=== PATIENT | male | born 1965 | race Caucasian/White ===

== ENCOUNTER 2021-10-10 19:51 | Observation (INO) ==
[2021-10-10 21:21] LABS: Basophils % 0.1 %; Eosinophils # 0.2 K/mcL (0.0-0.6); Hematocrit 44.7 % (37.5-50.1); Hemoglobin 14.6 g/dL (12.9-16.9); Immature Granulocytes % 0.4 % (0-4); Lymphocytes # 0.4 K/mcL (0.6-4.6); Mean Corpuscular HGB Conc 32.7 g/dL (31.6-35.5); Mean Corpuscular Volume 85.6 fL (83.0-100.0); Mean Platelet Volume 9.7 fL (9.4-12.4); Monocytes # 0.6 K/mcL (0.0-1.3); Monocytes % 4.1 %; Neutrophils # 13.2 K/mcL (1.6-8.9); Platelet Count 215 K/mcL (140-400); Red Blood Count 5.22 M/mcL (4.19-5.50); Segmented Neutrophils % 91.4 %; White Blood Count 14.4 K/mcL (4.3-11.1)
[2021-10-10 21:35] LABS: BUN/Creatinine Ratio 31 (6-26); Blood Urea Nitrogen 28 mg/dL (6-20); Calcium 9.6 mg/dL (8.6-10.3); Carbon Dioxide 23 mEq/L (23-29); Chloride 103 mEq/L (98-107); Glucose 109 mg/dL (70-105); Osmolality,Calculated 290 (280-300); Potassium 4.2 mEq/L (3.5-5.1); Sodium 137 mEq/L (136-145); eGFR For African Americans > 60 (> 60); eGFR For Non-African Americans > 60 (> 60)
[2021-10-10 21:47] LABS: Troponin I 0.04 ng/mL (< 0.04)
[2021-10-10] MEDS ORDERED: Ondansetron 4 MG/2 ML VIAL IVP ONE (21:55)
[2021-10-10] MEDS ORDERED: Aspirin 325 MG TABLET PO ONE (21:56)
[2021-10-10] MEDS ORDERED: Nitroglycerin 0.4 MG TAB.SUBL SL PRN (22:29)
[2021-10-10] MEDS ORDERED: Acetaminophen 325 MG TABLET PO PRN (22:51)
[2021-10-10] MEDS ORDERED: MOM Conc 10 ML UD.LIQ PO PRN (22:51)
[2021-10-10] MEDS ORDERED: Naloxone 0.4 MG/ML INJ IVP PRN (22:51)
[2021-10-10] MEDS ORDERED: Ondansetron ODT 4 MG TAB.RAPDIS SL PRN (22:51)
[2021-10-10] MEDS ORDERED: Melatonin 3 MG TABLET PO PRN (22:51)
[2021-10-10 23:28] LABS: Influenza A PCR Negative (Negative); Influenza B PCR Negative (Negative); Resp. Syncytial Virus PCR Negative (Negative)
[2021-10-10 23:31] LABS: SARS-CoV-2 by PCR (In House) Negative (Negative)
[2021-10-10] MEDS ORDERED: Perflutren Lipid Microsphere 1.3 ML in 0.9 % Sodium Chloride 8.7 ML IVP PRN (23:53)
[2021-10-11] MEDS ORDERED: GI Cocktail 40 ML EACH PO ONE (00:23)
[2021-10-11 05:37] LABS: Basophils % 0.2 %; Eosinophils # 0.2 K/mcL (0.0-0.6); Eosinophils % 1.7 %; Hematocrit 39.2 % (37.5-50.1); Immature Granulocytes % 0.3 % (0-4); Lymphocytes # 0.9 K/mcL (0.6-4.6); Lymphocytes % 9.3 %; Mean Corpuscular HGB Conc 33.2 g/dL (31.6-35.5); Mean Corpuscular Hemoglobin 28.7 pg (28.0-33.3); Mean Corpuscular Volume 86.5 fL (83.0-100.0); Mean Platelet Volume 9.9 fL (9.4-12.4); Monocytes # 0.6 K/mcL (0.0-1.3); Monocytes % 6.9 %; Neutrophils # 7.6 K/mcL (1.6-8.9); Platelet Count 181 K/mcL (140-400); Red Blood Count 4.53 M/mcL (4.19-5.50); Segmented Neutrophils % 81.6 %; White Blood Count 9.3 K/mcL (4.3-11.1)
[2021-10-11 05:54] LABS: BUN/Creatinine Ratio 35 (6-26); Blood Urea Nitrogen 34 mg/dL (6-20); Calcium 8.9 mg/dL (8.6-10.3); Carbon Dioxide 23 mEq/L (23-29); Chloride 102 mEq/L (98-107); Chol/HDL Ratio 3.3 (0-4.9); Cholesterol 105 mg/dL (< 200); Glucose 101 mg/dL (70-105); HDL Cholesterol 32 mg/dL (40-59); LDL Cholesterol,Calculated 60 mg/dL (< 100); Magnesium 2.1 mg/dL (1.6-2.6); Osmolality,Calculated 288 (280-300); Phosphorous 4.5 mg/dL (2.7-4.5); Potassium 3.8 mEq/L (3.5-5.1); Sodium 135 mEq/L (136-145); Triglycerides 66 mg/dL (< 150); eGFR For African Americans > 60 (> 60); eGFR For Non-African Americans > 60 (> 60)
[2021-10-11] MEDS ORDERED: *HR* Heparin 5,000 UNIT/ML VIAL SQ SCH (06:00)
[2021-10-11] MEDS ORDERED: Regadenoson 0.4 MG/5 ML SYRINGE IVP ONE (07:58)
[2021-10-11] MEDS: Aspirin 81 MG TAB.CHEW PO SCH (08:23)
[2021-10-11] MEDS ORDERED: Metoprolol XL (24 HR) Succ 25 MG TAB.ER.24H PO SCH (09:00)
[2021-10-11] MEDS: *HR* Heparin 5,000 UNIT/ML VIAL SQ SCH ×2 (13:46→20:13)
[2021-10-11] MEDS ORDERED: Metoprolol XL (24 HR) Succ 25 MG TAB.ER.24H PO ONE (14:05)
[2021-10-11] MEDS: predniSONE 20 MG TABLET PO SCH (16:45)
[2021-10-11] MEDS: Metoprolol XL (24 HR) Succ 25 MG TAB.ER.24H PO SCH (20:13)
[2021-10-12 01:11] LABS: Basophils % 0.4 %; Eosinophils # 0.2 K/mcL (0.0-0.6); Eosinophils % 4.5 %; Hematocrit 39.9 % (37.5-50.1); Hemoglobin 12.9 g/dL (12.9-16.9); Immature Granulocytes % 0.4 % (0-4); Lymphocytes # 0.8 K/mcL (0.6-4.6); Lymphocytes % 16.5 %; Mean Corpuscular HGB Conc 32.3 g/dL (31.6-35.5); Mean Corpuscular Hemoglobin 28.6 pg (28.0-33.3); Mean Corpuscular Volume 88.5 fL (83.0-100.0); Monocytes # 0.7 K/mcL (0.0-1.3); Monocytes % 13.6 %; Neutrophils # 3.3 K/mcL (1.6-8.9); Platelet Count 168 K/mcL (140-400); Red Blood Count 4.51 M/mcL (4.19-5.50); Segmented Neutrophils % 64.6 %; White Blood Count 5.1 K/mcL (4.3-11.1)
[2021-10-12 01:32] LABS: BUN/Creatinine Ratio 25 (6-26); Blood Urea Nitrogen 22 mg/dL (6-20); Calcium 8.9 mg/dL (8.6-10.3); Carbon Dioxide 27 mEq/L (23-29); Chloride 103 mEq/L (98-107); Glucose 110 mg/dL (70-105); Magnesium 2.2 mg/dL (1.6-2.6); Osmolality,Calculated 288 (280-300); Phosphorous 3.3 mg/dL (2.7-4.5); Potassium 4.2 mEq/L (3.5-5.1); Sodium 137 mEq/L (136-145); eGFR For African Americans > 60 (> 60); eGFR For Non-African Americans > 60 (> 60)
[2021-10-12] MEDS: *HR* Heparin 5,000 UNIT/ML VIAL SQ SCH ×3 (05:52→20:21)
[2021-10-12] MEDS: Metoprolol XL (24 HR) Succ 25 MG TAB.ER.24H PO SCH ×2 (07:58→20:20)
[2021-10-12] MEDS: Aspirin 81 MG TAB.CHEW PO SCH (07:58)
[2021-10-12] MEDS: predniSONE 20 MG TABLET PO SCH ×2 (07:58→17:59)
[2021-10-12] MEDS ORDERED: Regadenoson 0.4 MG/5 ML SYRINGE IVP ONE (11:03)
[2021-10-13 00:54] LABS: Basophils % 0.1 %; Eosinophils # 0.2 K/mcL (0.0-0.6); Eosinophils % 2.7 %; Hematocrit 38.5 % (37.5-50.1); Hemoglobin 12.4 g/dL (12.9-16.9); Immature Granulocytes % 0.5 % (0-4); Lymphocytes # 0.9 K/mcL (0.6-4.6); Lymphocytes % 10.4 %; Mean Corpuscular HGB Conc 32.2 g/dL (31.6-35.5); Mean Corpuscular Hemoglobin 27.7 pg (28.0-33.3); Mean Corpuscular Volume 85.9 fL (83.0-100.0); Mean Platelet Volume 9.7 fL (9.4-12.4); Monocytes # 0.7 K/mcL (0.0-1.3); Monocytes % 8.6 %; Neutrophils # 6.7 K/mcL (1.6-8.9); Platelet Count 184 K/mcL (140-400); Red Blood Count 4.48 M/mcL (4.19-5.50); Red Cell Distribution Width 15.6 % (11.5-14.5); Segmented Neutrophils % 77.7 %
[2021-10-13 00:59] LABS: White Blood Count 8.6 K/mcL (4.3-11.1)
[2021-10-13 01:15] LABS: BUN/Creatinine Ratio 29 (6-26); Blood Urea Nitrogen 22 mg/dL (6-20); Calcium 8.7 mg/dL (8.6-10.3); Carbon Dioxide 21 mEq/L (23-29); Chloride 105 mEq/L (98-107); Glucose 135 mg/dL (70-105); Magnesium 2.1 mg/dL (1.6-2.6); Osmolality,Calculated 285 (280-300); Phosphorous 3.6 mg/dL (2.7-4.5); Sodium 135 mEq/L (136-145); eGFR For African Americans > 60 (> 60); eGFR For Non-African Americans > 60 (> 60)
[2021-10-13] MEDS: *HR* Heparin 5,000 UNIT/ML VIAL SQ SCH ×2 (05:54→13:51)
[2021-10-13] MEDS: Metoprolol XL (24 HR) Succ 25 MG TAB.ER.24H PO SCH (08:23)
[2021-10-13] MEDS: predniSONE 20 MG TABLET PO SCH (08:23)
[2021-10-13] MEDS: Aspirin 81 MG TAB.CHEW PO SCH (08:23)
[2021-10-13 13:28] VITALS: BP 117/84; PULSE 69; TEMP 98.4; O2SAT 100
== END 2021-10-13 14:26 | disposition home or self-care (01) ==
LOC: 2ANU 19:51 → EMEROOARM 19:51 → SUATTDRO 22:46 → 2ANU 23:08
PROVIDERS: ADMIT Internal Medicine; ATTEND Internal Medicine

== ENCOUNTER 2022-03-09 06:03 | Inpatient (IN) ==
[2022-03-09] MEDS ORDERED: DOBUTamine 1,000 MG/250 ML BAG ONE (06:13)
[2022-03-09] MEDS ORDERED: NiCARdipine 2.5 MG/10 ML Syringe IVPB ONE (06:14)
[2022-03-09] MEDS ORDERED: EPINEPHrine 1 MG/ML VIAL ONE (06:17)
[2022-03-09] MEDS ORDERED: *HR* Rocuronium Bromide 50 MG/5 ML VIAL ONE ×4 (06:17→14:47)
[2022-03-09] MEDS ORDERED: Tranexamic Acid 1,000 MG/10 ML VIAL ONE (06:17)
[2022-03-09] MEDS ORDERED: *HR* Propofol 200 MG/20 ML VIAL IVP ONE (06:18)
[2022-03-09] MEDS ORDERED: *HR* FentaNYL (PF) 1,000 MCG/20 ML VIAL ONE (06:18)
[2022-03-09] MEDS ORDERED: *HR* Midazolam HCl 5 MG/5 ML VIAL IVP ONE (06:18)
[2022-03-09] MEDS ORDERED: Famotidine 20 MG/2 ML VIAL ONE (06:29)
[2022-03-09] MEDS ORDERED: *HR* Magnesium Sulfate 1 GM/2 ML VIAL ONE (06:29)
[2022-03-09] MEDS ORDERED: Lidocaine 2% Syringe 100 MG/5 ML ONE (06:32)
[2022-03-09] MEDS ORDERED: Clindamycin 900 MG/50 ML 900 MG/50 ML IV.SOLN IVPB ONE ×4 (06:44→14:03)
[2022-03-09] MEDS ORDERED: Ringers Solution, Lactated 1,000 ML IVC SCH (06:45)
[2022-03-09] MEDS ORDERED: Vancomycin 1,750 MG/517.5 ML IV.SOLN IVPB ONE (06:47)
[2022-03-09] MEDS ORDERED: Norepinephrine 4 MG in 0.9 % Sodium Chloride 250 ML IVC PRN (07:00)
[2022-03-09] MEDS ORDERED: del Nido Cardioplegia Solution PF ONE ×2 (07:00)
[2022-03-09] MEDS ORDERED: Heparin 15,000 UNIT in 0.9 % Sodium Chloride 500 ML IV ONE (07:00)
[2022-03-09] MEDS ORDERED: Buckersberg's Blood Cardioplegia PF ONE (07:00)
[2022-03-09 08:12] LABS: ABG Base Excess -3 mEq/L (-2 to 3); ABG Chloride 107 mEq/L (98-107); ABG Glucose 97 mg/dL (60-95); ABG HCO3 24 mEq/L (21-27); ABG Oxygen Saturation 100 % (95-98); ABG PCO2 52 mmHg (35-45); ABG PH 7.28 pH Units (7.32-7.45); ABG PO2 365 mmHg (85-104); ABG TCO2 26 mEq/L (20-26)
[2022-03-09] MEDS ORDERED: Chlorhexidine Rinse 15 ML MOUTHWASH MM SCH (09:00)
[2022-03-09] MEDS ORDERED: niCARdipine 20 MG/200 ML MLS IVC ONE (09:52)
[2022-03-09 09:55] LABS: ABG Base Excess -5 mEq/L (-2 to 3); ABG Chloride 111 mEq/L (98-107); ABG Glucose 98 mg/dL (60-95); ABG HCO3 20 mEq/L (21-27); ABG Ionized Calcium 1.08 mmol/L (1.15-1.35); ABG Oxygen Saturation 100 % (95-98); ABG PCO2 38 mmHg (35-45); ABG PH 7.34 pH Units (7.32-7.45); ABG PO2 217 mmHg (85-104); ABG TCO2 22 mEq/L (20-26)
[2022-03-09] MEDS ORDERED: CARDIOPLEGIC SOLUTION NO.1 1,000 ML ONE (10:45)
[2022-03-09 12:18] LABS: ABG Base Excess -5 mEq/L (-2 to 3); ABG Chloride 109 mEq/L (98-107); ABG Glucose 194 mg/dL (60-95); ABG HCO3 21 mEq/L (21-27); ABG Ionized Calcium 1.12 mmol/L (1.15-1.35); ABG Oxygen Saturation 100 % (95-98); ABG PCO2 38 mmHg (35-45); ABG PH 7.35 pH Units (7.32-7.45); ABG PO2 546 mmHg (85-104); ABG TCO2 22 mEq/L (20-26)
[2022-03-09] MEDS ORDERED: Protamine Sulfate 50 MG/5 ML VIAL IVP ONE ×2 (12:33→13:54)
[2022-03-09] MEDS ORDERED: Protamine Sulfate 250 MG/25 ML VIAL IVP ONE (12:33)
[2022-03-09] MEDS ORDERED: Calcium Gluconate 1,000 MG/10 ML VIAL ONE (12:34)
[2022-03-09] MEDS ORDERED: *HR* FentaNYL (PF) 250 MCG/5 ML VIAL ONE (12:48)
[2022-03-09 12:52] LABS: ABG Base Excess -6 mEq/L (-2 to 3); ABG Chloride 111 mEq/L (98-107); ABG Glucose 182 mg/dL (60-95); ABG HCO3 19 mEq/L (21-27); ABG Ionized Calcium 1.54 mmol/L (1.15-1.35); ABG Oxygen Saturation 100 % (95-98); ABG PCO2 31 mmHg (35-45); ABG PH 7.39 pH Units (7.32-7.45); ABG PO2 542 mmHg (85-104); ABG TCO2 20 mEq/L (20-26)
[2022-03-09] MEDS ORDERED: *HR* Dextrose 50 % in Water (Syg) 50 ML SYRINGE ONE (12:52)
[2022-03-09 13:14] LABS: ABG Base Excess -3 mEq/L (-2 to 3); ABG Chloride 107 mEq/L (98-107); ABG Glucose 227 mg/dL (60-95); ABG HCO3 22 mEq/L (21-27); ABG Ionized Calcium 1.18 mmol/L (1.15-1.35); ABG Oxygen Saturation 100 % (95-98); ABG PCO2 38 mmHg (35-45); ABG PH 7.38 pH Units (7.32-7.45); ABG PO2 541 mmHg (85-104); ABG TCO2 24 mEq/L (20-26)
[2022-03-09] MEDS ORDERED: Furosemide 40 MG/4 ML VIAL ONE (13:14)
[2022-03-09 13:51] LABS: VBG Base Excess -8 mEq/L; VBG Chloride 111 mEq/L (98-107); VBG Glucose 259 mg/dl (65-95); VBG HCO3 19 mEq/L (21-27); VBG Ionized Calcium 1.12 mmol/L (1.15-1.35); VBG Oxygen Saturation 77 %; VBG PCO2 47 mmHg (41-51); VBG PH 7.22 pH Units (7.32-7.42); VBG PO2 50 mmHg (25-50); VBG Total CO2 21 mEq/L
[2022-03-09 13:59] LABS: ABG Base Excess -9 mEq/L (-2 to 3); ABG Chloride 110 mEq/L (98-107); ABG Glucose 236 mg/dL (60-95); ABG HCO3 18 mEq/L (21-27); ABG Oxygen Saturation 100 % (95-98); ABG PCO2 44 mmHg (35-45); ABG PH 7.22 pH Units (7.32-7.45); ABG PO2 451 mmHg (85-104); ABG TCO2 19 mEq/L (20-26)
[2022-03-09] MEDS ORDERED: Sodium Bicarbonate 50 MEQ/50 ML VIAL ONE (13:59)
[2022-03-09] MEDS ORDERED: Albumin Human 5% 12.5 GM/250 ML IV.SOLN ONE (14:15)
[2022-03-09] MEDS ORDERED: Albumin Human 5% 25.0 GM/500 ML IV.SOLN ONE (14:16)
[2022-03-09 14:18] LABS: ABG Base Excess -4 mEq/L (-2 to 3); ABG Chloride 109 mEq/L (98-107); ABG Glucose 256 mg/dL (60-95); ABG HCO3 21 mEq/L (21-27); ABG Ionized Calcium 0.99 mmol/L (1.15-1.35); ABG Oxygen Saturation 100 % (95-98); ABG PCO2 38 mmHg (35-45); ABG PH 7.34 pH Units (7.32-7.45); ABG PO2 237 mmHg (85-104); ABG TCO2 22 mEq/L (20-26)
[2022-03-09] MEDS ORDERED: *HR* Midazolam HCl 2 MG/2 ML VIAL ONE (14:41)
[2022-03-09] MEDS ORDERED: Ipratropium 1 PUFF INHALER IH PRN (15:02)
[2022-03-09] MEDS ORDERED: *HR* Dextrose 50 % in Water (Syg) 50 ML SYRINGE IVP PRN (15:02)
[2022-03-09] MEDS ORDERED: Potassium Chloride 40 MEQ/200 ML BAG IVPB PRN (15:02)
[2022-03-09] MEDS ORDERED: Albuterol 2.5 MG/3 ML NEBULIZER IH PRN (15:02)
[2022-03-09] MEDS ORDERED: Insulin Regular, Human 100 UNIT/ML IV PRN (15:02)
[2022-03-09] MEDS ORDERED: Ipratropium/Albuterol Neb 3 ML IH PRN (15:02)
[2022-03-09] MEDS ORDERED: Acetaminophen 325 MG TABLET PO PRN (15:02)
[2022-03-09] MEDS: Norepinephrine 4 MG/254 ML IV.SOLN IVC SCH ×2 (15:06→21:12)
[2022-03-09 15:26] LABS: ABG Base Excess -3 mEq/L (-2 to 3); ABG HCO3 24 mEq/L (21-27); ABG Oxygen Saturation 96 % (95-98); ABG PCO2 49 mmHg (35-45); ABG PH 7.29 pH Units (7.32-7.45); ABG PO2 93 mmHg (85-104); ABG TCO2 25 mEq/L (20-26); Blood Gas Modality AF; Blood Gas VT 550 cc
[2022-03-09 15:39] LABS: Basophils % 0.2 %; Eosinophils % 0.1 %; Hematocrit 26.2 % (37.5-50.1); Hemoglobin 7.9 g/dL (12.9-16.9); Immature Granulocytes % 1.2 % (0-4); Lymphocytes # 0.8 K/mcL (0.6-4.6); Lymphocytes % 3.6 %; Mean Corpuscular HGB Conc 30.2 g/dL (31.6-35.5); Mean Corpuscular Volume 82.9 fL (83.0-100.0); Mean Platelet Volume 9.4 fL (9.4-12.4); Monocytes # 1.4 K/mcL (0.0-1.3); Monocytes % 6.3 %; Neutrophils # 19.8 K/mcL (1.6-8.9); Nucleated Red Blood Cells 0.2 /100 WBC (0); Platelet Count 100 K/mcL (140-400); Red Blood Count 3.16 M/mcL (4.19-5.50); Red Cell Distribution Width 16.4 % (11.5-14.5); Segmented Neutrophils % 88.6 %; White Blood Count 22.3 K/mcL (4.3-11.1)
[2022-03-09] MEDS: Albumin Human 5% 12.5 GM/250 ML IV.SOLN IVPB PRN ×2 (15:40→16:45)
[2022-03-09] MEDS: niCARdipine 20 MG/200 ML MLS IVC SCH ×3 (15:45→22:04)
[2022-03-09 15:50] LABS: INR 1.3
[2022-03-09 15:52] LABS: Activated Partial Thrombo Time 31.5 Seconds (26.0-36.0)
[2022-03-09 16:01] LABS: BUN/Creatinine Ratio 23 (6-26); Blood Urea Nitrogen 23 mg/dL (6-20); Carbon Dioxide 23 mEq/L (23-29); Chloride 109 mEq/L (98-107); Glucose 210 mg/dL (70-105); Osmolality,Calculated 308 (280-300); Potassium 4.4 mEq/L (3.5-5.1); Sodium 144 mEq/L (136-145); eGFR For African Americans > 60 (> 60); eGFR For Non-African Americans > 60 (> 60)
[2022-03-09] MEDS ORDERED: Mannitol 25% vial 12.5 GM/50 ML VIAL IVPB ONE (16:34)
[2022-03-09] MEDS ORDERED: Albumin Human 25% 25 GM/100 ML IV.SOLN IVPB ONE (16:34)
[2022-03-09] MEDS ORDERED: *HR* Magnesium Sulfate 2 GM/50 ML PIGGYBACK IVPB ONE (16:34)
[2022-03-09] MEDS ORDERED: Tranexamic Acid 1,000 MG/10 ML VIAL IR ONE (16:34)
[2022-03-09] MEDS ORDERED: D5% in Water 250 ML IV BAG IV ONE (16:34)
[2022-03-09] MEDS ORDERED: Lidocaine 2% Syringe 100 MG/5 ML IVP ONE (16:34)
[2022-03-09] MEDS ORDERED: *HR* Phenylephrine 10 MG/ML VIAL IVC ONE (16:34)
[2022-03-09] MEDS ORDERED: *HR* Heparin 10,000 UNIT/10 ML VIAL IR ONE (16:34)
[2022-03-09] MEDS ORDERED: Heparin 1,000 UNITS/500 mL IV.SOLN IR ONE (16:34)
[2022-03-09] MEDS: DOBUTamine 1,000 MG/250 ML BAG IVC SCH (16:34)
[2022-03-09] MEDS: Ketorolac 30 MG/ML VIAL IVP SCH (17:24)
[2022-03-09 18:19] LABS: ABG Base Excess -2 mEq/L (-2 to 3); ABG HCO3 24 mEq/L (21-27); ABG Oxygen Saturation 98 % (95-98); ABG PCO2 44 mmHg (35-45); ABG PH 7.35 pH Units (7.32-7.45); ABG PO2 113 mmHg (85-104); ABG TCO2 25 mEq/L (20-26); Blood Gas Modality CPAP/PS; Blood Gas Pressure Support 5 cm H2O
[2022-03-09] MEDS: *HR* FentaNYL (PF) 100 MCG/2 ML VIAL IVP PRN ×2 (18:59→21:00)
[2022-03-09] MEDS: *HR* OxyCODONE/APAP 5/325 TABLET PO PRN (19:54)
[2022-03-09] MEDS: Furosemide 20 MG/2 ML VIAL IVP SCH (19:58)
[2022-03-09] MEDS: Chlorhexidine Rinse 15 ML MOUTHWASH MM SCH (19:58)
[2022-03-09 20:26] LABS: ABG Base Excess -1 mEq/L (-2 to 3); ABG HCO3 23 mEq/L (21-27); ABG Oxygen Saturation 92 % (95-98); ABG PCO2 37 mmHg (35-45); ABG PO2 63 mmHg (85-104); ABG TCO2 24 mEq/L (20-26)
[2022-03-10] MEDS: *HR* OxyCODONE/APAP 5/325 TABLET PO PRN ×5 (01:08→20:57)
[2022-03-10] MEDS: niCARdipine 20 MG/200 ML MLS IVC SCH ×5 (02:02→20:36)
[2022-03-10] MEDS: *HR* FentaNYL (PF) 100 MCG/2 ML VIAL IVP PRN ×3 (03:05→14:54)
[2022-03-10] MEDS: Norepinephrine 4 MG/254 ML IV.SOLN IVC SCH ×4 (03:22→16:17)
[2022-03-10 03:51] LABS: Basophils % 0.1 %; Mean Platelet Volume 10.7 fL (9.4-12.4); Nucleated Red Blood Cells 0.2 /100 WBC (0)
[2022-03-10 03:53] LABS: Hematocrit 22.5 % (37.5-50.1); Immature Granulocytes % 0.5 % (0-4); Immature Platelets 5.3 % (1.1-6.1); Lymphocytes # 0.8 K/mcL (0.6-4.6); Mean Corpuscular HGB Conc 31.1 g/dL (31.6-35.5); Mean Corpuscular Hemoglobin 24.2 pg (28.0-33.3); Mean Corpuscular Volume 77.9 fL (83.0-100.0); Monocytes # 1.4 K/mcL (0.0-1.3); Neutrophils # 10.6 K/mcL (1.6-8.9); Red Blood Count 2.89 M/mcL (4.19-5.50); Red Cell Distribution Width 15.9 % (11.5-14.5); Segmented Neutrophils % 82.4 %; White Blood Count 12.8 K/mcL (4.3-11.1)
[2022-03-10 03:56] LABS: Platelet Count 92 K/mcL (140-400)
[2022-03-10 03:59] LABS: INR 1.2
[2022-03-10 04:02] LABS: Activated Partial Thrombo Time 24.7 Seconds (26.0-36.0)
[2022-03-10 04:19] LABS: BUN/Creatinine Ratio 26 (6-26); Blood Urea Nitrogen 30 mg/dL (6-20); Calcium 7.9 mg/dL (8.6-10.3); Carbon Dioxide 20 mEq/L (23-29); Chloride 104 mEq/L (98-107); Glucose 136 mg/dL (70-105); Magnesium 2.4 mg/dL (1.6-2.6); Osmolality,Calculated 294 (280-300); Potassium 4.4 mEq/L (3.5-5.1); Sodium 138 mEq/L (136-145); eGFR For African Americans > 60 (> 60); eGFR For Non-African Americans > 60 (> 60)
[2022-03-10] MEDS: Ketorolac 30 MG/ML VIAL IVP SCH ×4 (06:29→18:11)
[2022-03-10] MEDS ORDERED: 0.9 % Sodium Chloride 250 ML ONE (06:42)
[2022-03-10] MEDS: Chlorhexidine Rinse 15 ML MOUTHWASH MM SCH ×2 (08:00→20:35)
[2022-03-10] MEDS: Aspirin Enteric Coated 81 MG Tablet PO SCH ×2 (08:00→20:35)
[2022-03-10] MEDS: Furosemide 20 MG/2 ML VIAL IVP SCH (08:00)
[2022-03-10] MEDS ORDERED: Furosemide 20 MG/2 ML VIAL IVP ONE (08:32)
[2022-03-10] MEDS ORDERED: Albumin 25% 12.5gm/50mL 12.5 GM/50 ML IV.SOLN IVPB ONE (08:32)
[2022-03-10 09:15] LABS: ABG Base Excess -4 mEq/L (-2 to 3); ABG Chloride 106 mEq/L (98-107); ABG Glucose 101 mg/dL (60-95); ABG HCO3 22 mEq/L (21-27); ABG Ionized Calcium 1.15 mmol/L (1.15-1.35); ABG PCO2 41 mmHg (35-45); ABG PH 7.33 pH Units (7.32-7.45); ABG PO2 > 630 mmHg (85-104); ABG TCO2 23 mEq/L (20-26)
[2022-03-10 09:16] LABS: ABG Base Excess -1 mEq/L (-2 to 3); ABG Chloride 107 mEq/L (98-107); ABG Glucose 125 mg/dL (60-95); ABG HCO3 24 mEq/L (21-27); ABG Ionized Calcium 1.14 mmol/L (1.15-1.35); ABG PCO2 40 mmHg (35-45); ABG PH 7.38 pH Units (7.32-7.45); ABG PO2 > 630 mmHg (85-104); ABG TCO2 25 mEq/L (20-26)
[2022-03-10 09:16] LABS: ABG Base Excess -3 mEq/L (-2 to 3); ABG Chloride 109 mEq/L (98-107); ABG Glucose 177 mg/dL (60-95); ABG HCO3 21 mEq/L (21-27); ABG Ionized Calcium 1.13 mmol/L (1.15-1.35); ABG PCO2 36 mmHg (35-45); ABG PH 7.39 pH Units (7.32-7.45); ABG PO2 > 630 mmHg (85-104); ABG TCO2 22 mEq/L (20-26)
[2022-03-10] MEDS: DOBUTamine 1,000 MG/250 ML BAG IVC SCH (12:34)
[2022-03-10] MEDS ORDERED: D10% in Water 500 ML ONE (13:17)
[2022-03-10] MEDS: Nicotine 7 MG PATCH.TD24 TD SCH (17:03)
[2022-03-10 18:59] LABS: Basophils % 0.1 %; Hematocrit 23.6 % (37.5-50.1); Hemoglobin 7.4 g/dL (12.9-16.9); Immature Granulocytes % 0.6 % (0-4); Immature Platelets 6.1 % (1.1-6.1); Lymphocytes # 1.1 K/mcL (0.6-4.6); Lymphocytes % 6.1 %; Mean Corpuscular HGB Conc 31.4 g/dL (31.6-35.5); Mean Corpuscular Hemoglobin 24.9 pg (28.0-33.3); Mean Corpuscular Volume 79.5 fL (83.0-100.0); Monocytes # 1.8 K/mcL (0.0-1.3); Neutrophils # 15.1 K/mcL (1.6-8.9); Nucleated Red Blood Cells 0.3 /100 WBC (0); Red Blood Count 2.97 M/mcL (4.19-5.50); Red Cell Distribution Width 16.2 % (11.5-14.5); Segmented Neutrophils % 83.2 %; White Blood Count 18.1 K/mcL (4.3-11.1)
[2022-03-10 19:00] LABS: Platelet Count 89 K/mcL (140-400)
[2022-03-10] MEDS ORDERED: Furosemide 40 MG/4 ML VIAL IVP ONE (21:00)
[2022-03-10] MEDS ORDERED: Albumin 25% 25gram/100mL 25 GM/100 ML IV.SOLN IVPB ONE (21:00)
[2022-03-11] MEDS: *HR* OxyCODONE/APAP 5/325 TABLET PO PRN ×3 (02:30→17:24)
[2022-03-11] MEDS: Ketorolac 30 MG/ML VIAL IVP SCH ×5 (02:35→21:02)
[2022-03-11 03:56] LABS: Hematocrit 21.9 % (37.5-50.1); Hemoglobin 6.7 g/dL (12.9-16.9); Immature Granulocytes % 0.7 % (0-4); Immature Platelets 6.2 % (1.1-6.1); Lymphocytes # 1.2 K/mcL (0.6-4.6); Lymphocytes % 7.8 %; Mean Corpuscular HGB Conc 30.6 g/dL (31.6-35.5); Mean Corpuscular Hemoglobin 24.9 pg (28.0-33.3); Mean Corpuscular Volume 81.4 fL (83.0-100.0); Mean Platelet Volume 10.4 fL (9.4-12.4); Monocytes # 1.5 K/mcL (0.0-1.3); Monocytes % 9.7 %; Neutrophils # 12.4 K/mcL (1.6-8.9); Nucleated Red Blood Cells 0.3 /100 WBC (0); Platelet Count 75 K/mcL (140-400); Red Blood Count 2.69 M/mcL (4.19-5.50); Red Cell Distribution Width 16.3 % (11.5-14.5); Segmented Neutrophils % 81.8 %; White Blood Count 15.2 K/mcL (4.3-11.1)
[2022-03-11] MEDS ORDERED: 0.9 % Sodium Chloride 1,000 ML ONE (04:10)
[2022-03-11 04:12] LABS: Alanine Aminotransferase 21 Units/L (7-52); Albumin 3.8 g/dL (3.5-5.7); Albumin/Globulin Ratio 2.1 (1.1-2.2); Alkaline Phosphatase 33 Units/L (34-104); Aspartate Amino Transferase 40 Units/L (13-39); BUN/Creatinine Ratio 39 (6-26); Bilirubin,Total 0.4 mg/dL (0.3-1.0); Blood Urea Nitrogen 43 mg/dL (6-20); Calcium 7.8 mg/dL (8.6-10.3); Carbon Dioxide 28 mEq/L (23-29); Chloride 101 mEq/L (98-107); Globulin 1.8 g/dL (2.4-3.5); Glucose 129 mg/dL (70-105); Osmolality,Calculated 291 (280-300); Potassium 3.7 mEq/L (3.5-5.1); Sodium 134 mEq/L (136-145); Total Protein 5.6 g/dL (6.4-8.9); eGFR For African Americans > 60 (> 60); eGFR For Non-African Americans > 60 (> 60)
[2022-03-11] MEDS: niCARdipine 20 MG/200 ML MLS IVC SCH ×5 (05:37→14:04)
[2022-03-11] MEDS: Norepinephrine 4 MG/254 ML IV.SOLN IVC SCH ×4 (05:37→14:04)
[2022-03-11] MEDS ORDERED: Furosemide 20 MG/2 ML VIAL IVP SCH (08:00)
[2022-03-11] MEDS: Chlorhexidine Rinse 15 ML MOUTHWASH MM SCH ×2 (08:04→21:01)
[2022-03-11] MEDS: lisinopriL 5 MG TABLET PO SCH (08:04)
[2022-03-11] MEDS: Aspirin Enteric Coated 81 MG Tablet PO SCH ×2 (08:04→21:01)
[2022-03-11] MEDS: Nicotine 7 MG PATCH.TD24 TD SCH (08:05)
[2022-03-11] MEDS ORDERED: 0.9 % Sodium Chloride 250 ML ONE ×2 (09:27→13:09)
[2022-03-11] MEDS: Bumetanide 1 MG/4 ML VIAL IVP SCH (09:45)
[2022-03-11 09:47] LABS: VBG Ionized Calcium 1.06 mmol/L (1.15-1.35)
[2022-03-11] MEDS: DOBUTamine 1,000 MG/250 ML BAG IVC SCH (10:20)
[2022-03-11 16:18] LABS: Basophils % 0.1 %; Eosinophils # 0.1 K/mcL (0.0-0.6); Eosinophils % 0.3 %; Hematocrit 26.5 % (37.5-50.1); Hemoglobin 8.2 g/dL (12.9-16.9); Lymphocytes # 1.4 K/mcL (0.6-4.6); Lymphocytes % 7.7 %; Mean Corpuscular HGB Conc 30.9 g/dL (31.6-35.5); Mean Corpuscular Hemoglobin 25.5 pg (28.0-33.3); Mean Corpuscular Volume 82.3 fL (83.0-100.0); Mean Platelet Volume 10.3 fL (9.4-12.4); Monocytes # 2.2 K/mcL (0.0-1.3); Monocytes % 11.6 %; Neutrophils # 14.8 K/mcL (1.6-8.9); Nucleated Red Blood Cells 0.4 /100 WBC (0); Red Blood Count 3.22 M/mcL (4.19-5.50); Red Cell Distribution Width 16.3 % (11.5-14.5); Segmented Neutrophils % 79.3 %; White Blood Count 18.7 K/mcL (4.3-11.1)
[2022-03-11 16:19] LABS: Platelet Count 90 K/mcL (140-400)
[2022-03-12] MEDS: *HR* OxyCODONE/APAP 5/325 TABLET PO PRN ×5 (00:31→21:22)
[2022-03-12 05:37] LABS: Basophils % 0.1 %; Hemoglobin 8.2 g/dL (12.9-16.9); Immature Granulocytes % 0.8 % (0-4)
[2022-03-12 05:39] LABS: Eosinophils # 0.2 K/mcL (0.0-0.6); Eosinophils % 1.2 %; Immature Platelets 5.3 % (1.1-6.1); Lymphocytes # 1.6 K/mcL (0.6-4.6); Mean Corpuscular HGB Conc 31.5 g/dL (31.6-35.5); Mean Corpuscular Hemoglobin 25.9 pg (28.0-33.3); Mean Platelet Volume 9.8 fL (9.4-12.4); Monocytes # 1.8 K/mcL (0.0-1.3); Monocytes % 11.2 %; Nucleated Red Blood Cells 0.4 /100 WBC (0); Red Blood Count 3.17 M/mcL (4.19-5.50); Red Cell Distribution Width 16.3 % (11.5-14.5); Segmented Neutrophils % 76.7 %; White Blood Count 15.6 K/mcL (4.3-11.1)
[2022-03-12 05:52] LABS: Platelet Count 91 K/mcL (140-400)
[2022-03-12 05:56] LABS: Alanine Aminotransferase 21 Units/L (7-52); Albumin 3.6 g/dL (3.5-5.7); Albumin/Globulin Ratio 1.8 (1.1-2.2); Alkaline Phosphatase 34 Units/L (34-104); Aspartate Amino Transferase 23 Units/L (13-39); BUN/Creatinine Ratio 49 (6-26); Bilirubin,Total 0.6 mg/dL (0.3-1.0); Blood Urea Nitrogen 35 mg/dL (6-20); Calcium 7.9 mg/dL (8.6-10.3); Carbon Dioxide 28 mEq/L (23-29); Chloride 102 mEq/L (98-107); Glucose 100 mg/dL (70-105); Osmolality,Calculated 286 (280-300); Potassium 4.1 mEq/L (3.5-5.1); Sodium 134 mEq/L (136-145); Total Protein 5.6 g/dL (6.4-8.9); eGFR For African Americans > 60 (> 60); eGFR For Non-African Americans > 60 (> 60)
[2022-03-12] MEDS: Ketorolac 30 MG/ML VIAL IVP SCH ×2 (07:00→11:58)
[2022-03-12] MEDS: Aspirin Enteric Coated 81 MG Tablet PO SCH ×2 (07:40→21:22)
[2022-03-12] MEDS: Chlorhexidine Rinse 15 ML MOUTHWASH MM SCH ×2 (07:40→21:22)
[2022-03-12] MEDS: Nicotine 7 MG PATCH.TD24 TD SCH (07:40)
[2022-03-12] MEDS: lisinopriL 5 MG TABLET PO SCH (07:40)
[2022-03-12] MEDS: Bumetanide 1 MG/4 ML VIAL IVP SCH (07:41)
[2022-03-12] MEDS ORDERED: Sennosides/Docusate Sodium TABLET PO PRN (11:25)
[2022-03-12] MEDS ORDERED: Albuterol 2.5 MG/3 ML NEBULIZER IH PRN (14:17)
[2022-03-12] MEDS ORDERED: Potassium Chloride 40 MEQ/200 ML BAG IVPB PRN (14:17)
[2022-03-12] MEDS ORDERED: Ipratropium/Albuterol Neb 3 ML IH PRN (14:17)
[2022-03-12] MEDS ORDERED: *HR* Dextrose 50 % in Water (Syg) 50 ML SYRINGE IVP PRN (14:17)
[2022-03-12] MEDS ORDERED: Albumin Human 5% 12.5 GM/250 ML IV.SOLN IVPB PRN (14:17)
[2022-03-12] MEDS ORDERED: Ipratropium 1 PUFF INHALER IH PRN (14:17)
[2022-03-12] MEDS ORDERED: Insulin Regular, Human 100 UNIT/ML IV PRN (14:17)
[2022-03-12] MEDS: Norepinephrine 4 MG/254 ML IV.SOLN IVC SCH ×2 (15:31→15:38)
[2022-03-12] MEDS: niCARdipine 20 MG/200 ML MLS IVC SCH ×3 (15:31→15:41)
[2022-03-12] MEDS ORDERED: Ketorolac 30 MG/ML VIAL IVP SCH (18:00)
[2022-03-12 18:42] LABS: Basophils % 0.1 %; Eosinophils # 0.4 K/mcL (0.0-0.6); Eosinophils % 2.7 %; Hematocrit 26.3 % (37.5-50.1); Hemoglobin 8.1 g/dL (12.9-16.9); Immature Granulocytes % 0.7 % (0-4); Lymphocytes # 1.4 K/mcL (0.6-4.6); Lymphocytes % 10.9 %; Mean Corpuscular HGB Conc 30.8 g/dL (31.6-35.5); Mean Corpuscular Hemoglobin 25.5 pg (28.0-33.3); Mean Corpuscular Volume 82.7 fL (83.0-100.0); Mean Platelet Volume 10.3 fL (9.4-12.4); Monocytes # 1.3 K/mcL (0.0-1.3); Monocytes % 10.4 %; Neutrophils # 9.6 K/mcL (1.6-8.9); Nucleated Red Blood Cells 0.4 /100 WBC (0); Platelet Count 100 K/mcL (140-400); Red Blood Count 3.18 M/mcL (4.19-5.50); Red Cell Distribution Width 16.5 % (11.5-14.5); Segmented Neutrophils % 75.2 %; White Blood Count 12.8 K/mcL (4.3-11.1)
[2022-03-13] MEDS: *HR* OxyCODONE/APAP 5/325 TABLET PO PRN ×5 (01:47→22:24)
[2022-03-13] MEDS: lisinopriL 5 MG TABLET PO SCH (08:12)
[2022-03-13] MEDS: Aspirin Enteric Coated 81 MG Tablet PO SCH ×2 (08:12→21:34)
[2022-03-13] MEDS: Nicotine 7 MG PATCH.TD24 TD SCH (08:12)
[2022-03-13] MEDS: Chlorhexidine Rinse 15 ML MOUTHWASH MM SCH ×2 (08:13→21:34)
[2022-03-13 08:21] LABS: Basophils % 0.1 %; Eosinophils # 0.5 K/mcL (0.0-0.6); Eosinophils % 3.2 %; Hematocrit 30.1 % (37.5-50.1); Hemoglobin 9.2 g/dL (12.9-16.9); Immature Granulocytes % 0.6 % (0-4); Lymphocytes # 1.4 K/mcL (0.6-4.6); Lymphocytes % 9.8 %; Mean Corpuscular HGB Conc 30.6 g/dL (31.6-35.5); Mean Corpuscular Hemoglobin 25.3 pg (28.0-33.3); Mean Corpuscular Volume 82.9 fL (83.0-100.0); Mean Platelet Volume 10.3 fL (9.4-12.4); Monocytes # 1.5 K/mcL (0.0-1.3); Neutrophils # 10.4 K/mcL (1.6-8.9); Nucleated Red Blood Cells 0.2 /100 WBC (0); Platelet Count 112 K/mcL (140-400); Red Blood Count 3.63 M/mcL (4.19-5.50); Red Cell Distribution Width 16.3 % (11.5-14.5); Segmented Neutrophils % 75.3 %; White Blood Count 13.9 K/mcL (4.3-11.1)
[2022-03-13 08:41] LABS: Alanine Aminotransferase 21 Units/L (7-52); Albumin 3.8 g/dL (3.5-5.7); Albumin/Globulin Ratio 1.6 (1.1-2.2); Alkaline Phosphatase 38 Units/L (34-104); Aspartate Amino Transferase 22 Units/L (13-39); BUN/Creatinine Ratio 36 (6-26); Bilirubin,Total 0.7 mg/dL (0.3-1.0); Blood Urea Nitrogen 22 mg/dL (6-20); Calcium 8.3 mg/dL (8.6-10.3); Carbon Dioxide 23 mEq/L (23-29); Chloride 101 mEq/L (98-107); Globulin 2.4 g/dL (2.4-3.5); Glucose 97 mg/dL (70-105); Osmolality,Calculated 273 (280-300); Potassium 4.6 mEq/L (3.5-5.1); Sodium 130 mEq/L (136-145); Total Protein 6.2 g/dL (6.4-8.9); eGFR For African Americans > 60 (> 60); eGFR For Non-African Americans > 60 (> 60)
[2022-03-13] MEDS ORDERED: Bumetanide 1 MG/4 ML VIAL IVP SCH (09:00)
[2022-03-13] MEDS ORDERED: Sennosides/Docusate Sodium TABLET PO ONE (10:18)
[2022-03-13] MEDS: polyethylene glycoL 3350 17 GM POWD.PACK PO SCH (10:48)
[2022-03-13] MEDS: Bumetanide 1 MG/4 ML VIAL IVP SCH (17:41)
[2022-03-14 02:07] LABS: Basophils % 0.2 %; Eosinophils # 0.5 K/mcL (0.0-0.6); Eosinophils % 4.4 %; Hematocrit 27.3 % (37.5-50.1); Hemoglobin 8.4 g/dL (12.9-16.9); Immature Granulocytes % 0.7 % (0-4); Mean Corpuscular HGB Conc 30.8 g/dL (31.6-35.5); Mean Corpuscular Hemoglobin 25.5 pg (28.0-33.3); Mean Corpuscular Volume 82.7 fL (83.0-100.0); Mean Platelet Volume 9.8 fL (9.4-12.4); Monocytes # 1.9 K/mcL (0.0-1.3); Monocytes % 15.2 %; Neutrophils # 7.8 K/mcL (1.6-8.9); Nucleated Red Blood Cells 0.2 /100 WBC (0); Platelet Count 120 K/mcL (140-400); Red Cell Distribution Width 16.2 % (11.5-14.5); Segmented Neutrophils % 63.5 %; White Blood Count 12.3 K/mcL (4.3-11.1)
[2022-03-14 02:26] LABS: BUN/Creatinine Ratio 29 (6-26); Blood Urea Nitrogen 20 mg/dL (6-20); Calcium 8.4 mg/dL (8.6-10.3); Carbon Dioxide 28 mEq/L (23-29); Chloride 100 mEq/L (98-107); Glucose 98 mg/dL (70-105); Osmolality,Calculated 281 (280-300); Potassium 4.9 mEq/L (3.5-5.1); Sodium 134 mEq/L (136-145); eGFR For African Americans > 60 (> 60); eGFR For Non-African Americans > 60 (> 60)
[2022-03-14] MEDS ORDERED: *HR* Dextrose 50 % in Water (Syg) 50 ML SYRINGE IVP PRN (07:31)
[2022-03-14] MEDS ORDERED: D5% in Water 1,000 ML IVC PRN (07:31)
[2022-03-14] MEDS ORDERED: Dextrose Gel 15 GM/37.5 ML TUBE PO PRN ×2 (07:31)
[2022-03-14] MEDS: Insulin LISPRO 300 UNITS/3 ML VIAL SUBQ SCH ×4 (07:48→20:59)
[2022-03-14] MEDS: lisinopriL 5 MG TABLET PO SCH (07:57)
[2022-03-14] MEDS: Chlorhexidine Rinse 15 ML MOUTHWASH MM SCH ×2 (07:58→20:51)
[2022-03-14] MEDS: Aspirin Enteric Coated 81 MG Tablet PO SCH ×2 (07:58→20:50)
[2022-03-14] MEDS: polyethylene glycoL 3350 17 GM POWD.PACK PO SCH (07:58)
[2022-03-14] MEDS: Bumetanide 1 MG/4 ML VIAL IVP SCH ×2 (07:58→17:06)
[2022-03-14] MEDS: Nicotine 7 MG PATCH.TD24 TD SCH (07:58)
[2022-03-14] MEDS: *HR* OxyCODONE/APAP 5/325 TABLET PO PRN ×4 (07:59→21:07)
[2022-03-14] MEDS: Gabapentin 300 MG CAPSULE PO SCH ×3 (08:07→23:25)
[2022-03-15 03:51] LABS: Basophils % 0.3 %; Eosinophils # 0.8 K/mcL (0.0-0.6); Eosinophils % 6.6 %; Hematocrit 27.3 % (37.5-50.1); Hemoglobin 8.4 g/dL (12.9-16.9); Immature Granulocytes % 1.3 % (0-4); Lymphocytes # 2.1 K/mcL (0.6-4.6); Lymphocytes % 18.3 %; Mean Corpuscular HGB Conc 30.8 g/dL (31.6-35.5); Mean Corpuscular Hemoglobin 25.2 pg (28.0-33.3); Mean Platelet Volume 9.3 fL (9.4-12.4); Monocytes # 1.7 K/mcL (0.0-1.3); Monocytes % 14.9 %; Neutrophils # 6.7 K/mcL (1.6-8.9); Platelet Count 123 K/mcL (140-400); Red Blood Count 3.33 M/mcL (4.19-5.50); Red Cell Distribution Width 16.2 % (11.5-14.5); Segmented Neutrophils % 58.6 %; White Blood Count 11.4 K/mcL (4.3-11.1)
[2022-03-15 04:18] LABS: BUN/Creatinine Ratio 25 (6-26); Blood Urea Nitrogen 20 mg/dL (6-20); Calcium 8.6 mg/dL (8.6-10.3); Carbon Dioxide 28 mEq/L (23-29); Chloride 100 mEq/L (98-107); Glucose 120 mg/dL (70-105); Magnesium 1.9 mg/dL (1.6-2.6); Osmolality,Calculated 284 (280-300); Potassium 4.3 mEq/L (3.5-5.1); Sodium 135 mEq/L (136-145); eGFR For African Americans > 60 (> 60); eGFR For Non-African Americans > 60 (> 60)
[2022-03-15] MEDS: *HR* Enoxaparin 40 MG/0.4 ML SYRINGE SQ SCH (05:45)
[2022-03-15] MEDS: Insulin LISPRO 300 UNITS/3 ML VIAL SUBQ SCH ×4 (08:07→21:52)
[2022-03-15] MEDS: Bumetanide 1 MG/4 ML VIAL IVP SCH ×2 (08:07→16:20)
[2022-03-15] MEDS: Chlorhexidine Rinse 15 ML MOUTHWASH MM SCH ×2 (08:09→21:45)
[2022-03-15] MEDS: lisinopriL 5 MG TABLET PO SCH (08:09)
[2022-03-15] MEDS: Aspirin Enteric Coated 81 MG Tablet PO SCH ×2 (08:09→21:45)
[2022-03-15] MEDS: polyethylene glycoL 3350 17 GM POWD.PACK PO SCH (08:09)
[2022-03-15] MEDS: Gabapentin 300 MG CAPSULE PO SCH ×3 (08:09→21:45)
[2022-03-15] MEDS: Nicotine 7 MG PATCH.TD24 TD SCH (08:10)
[2022-03-15] MEDS: *HR* OxyCODONE/APAP 5/325 TABLET PO PRN ×4 (08:14→21:45)
[2022-03-16 01:04] LABS: Basophils # 0.1 K/mcL (0.0-0.2); Basophils % 0.3 %; Eosinophils # 0.8 K/mcL (0.0-0.6); Eosinophils % 5.2 %; Hematocrit 29.1 % (37.5-50.1); Hemoglobin 8.8 g/dL (12.9-16.9); Immature Granulocytes % 1.9 % (0-4); Lymphocytes # 1.9 K/mcL (0.6-4.6); Lymphocytes % 12.2 %; Mean Corpuscular HGB Conc 30.2 g/dL (31.6-35.5); Mean Corpuscular Hemoglobin 24.9 pg (28.0-33.3); Mean Corpuscular Volume 82.4 fL (83.0-100.0); Mean Platelet Volume 9.4 fL (9.4-12.4); Monocytes % 12.5 %; Neutrophils # 10.5 K/mcL (1.6-8.9); Platelet Count 183 K/mcL (140-400); Red Blood Count 3.53 M/mcL (4.19-5.50); Red Cell Distribution Width 16.5 % (11.5-14.5); Segmented Neutrophils % 67.9 %; White Blood Count 15.6 K/mcL (4.3-11.1)
[2022-03-16 01:06] LABS: BUN/Creatinine Ratio 27 (6-26); Blood Urea Nitrogen 21 mg/dL (6-20); Calcium 8.9 mg/dL (8.6-10.3); Carbon Dioxide 28 mEq/L (23-29); Chloride 96 mEq/L (98-107); Glucose 145 mg/dL (70-105); Magnesium 1.9 mg/dL (1.6-2.6); Osmolality,Calculated 284 (280-300); Potassium 4.4 mEq/L (3.5-5.1); Sodium 134 mEq/L (136-145); eGFR For African Americans > 60 (> 60); eGFR For Non-African Americans > 60 (> 60)
[2022-03-16] MEDS: *HR* OxyCODONE/APAP 5/325 TABLET PO PRN ×3 (03:12→15:12)
[2022-03-16] MEDS: *HR* Enoxaparin 40 MG/0.4 ML SYRINGE SQ SCH (05:59)
[2022-03-16] MEDS ORDERED: Amiodarone Premix 150 MG/100 ML BAG IVPB ONE (07:04)
[2022-03-16] MEDS ORDERED: Amiodarone Premix 360 MG/200 ML BAG IVC ONE (07:04)
[2022-03-16] MEDS: Chlorhexidine Rinse 15 ML MOUTHWASH MM SCH ×2 (08:25→21:16)
[2022-03-16] MEDS: Aspirin Enteric Coated 81 MG Tablet PO SCH ×2 (08:26→21:16)
[2022-03-16] MEDS: Nicotine 7 MG PATCH.TD24 TD SCH (08:27)
[2022-03-16] MEDS: polyethylene glycoL 3350 17 GM POWD.PACK PO SCH (08:27)
[2022-03-16] MEDS: Gabapentin 300 MG CAPSULE PO SCH ×3 (08:27→21:16)
[2022-03-16] MEDS: Bumetanide 1 MG/4 ML VIAL IVP SCH ×2 (08:28→16:32)
[2022-03-16] MEDS: Insulin LISPRO 300 UNITS/3 ML VIAL SUBQ SCH ×4 (09:53→21:15)
[2022-03-16] MEDS: lisinopriL 5 MG TABLET PO SCH (11:11)
[2022-03-16] MEDS: Amiodarone Premix 360 MG/200 ML BAG IVC SCH (13:26)
[2022-03-16 16:31] LABS: BUN/Creatinine Ratio 26 (6-26); Blood Urea Nitrogen 19 mg/dL (6-20); Calcium 8.2 mg/dL (8.6-10.3); Carbon Dioxide 29 mEq/L (23-29); Chloride 93 mEq/L (98-107); Glucose 269 mg/dL (70-105); Osmolality,Calculated 280 (280-300); Potassium 4.2 mEq/L (3.5-5.1); Sodium 129 mEq/L (136-145); eGFR For African Americans > 60 (> 60); eGFR For Non-African Americans > 60 (> 60)
[2022-03-16] MEDS ORDERED: Ipratropium/Albuterol Neb 3 ML IH PRN (18:03)
[2022-03-17] MEDS ORDERED: Bumetanide 1 MG/4 ML VIAL IVP ONE (01:25)
[2022-03-17] MEDS: Amiodarone Premix 360 MG/200 ML BAG IVC SCH ×2 (02:06→12:40)
[2022-03-17 04:57] LABS: Hematocrit 27.7 % (37.5-50.1); Hemoglobin 8.3 g/dL (12.9-16.9); Mean Corpuscular Hemoglobin 24.6 pg (28.0-33.3); Mean Platelet Volume 9.6 fL (9.4-12.4); Platelet Count 215 K/mcL (140-400); Red Blood Count 3.38 M/mcL (4.19-5.50); Red Cell Distribution Width 16.9 % (11.5-14.5); White Blood Count 20.9 K/mcL (4.3-11.1)
[2022-03-17 05:19] LABS: BUN/Creatinine Ratio 30 (6-26); Blood Urea Nitrogen 26 mg/dL (6-20); Calcium 8.2 mg/dL (8.6-10.3); Carbon Dioxide 26 mEq/L (23-29); Chloride 96 mEq/L (98-107); Glucose 121 mg/dL (70-105); Osmolality,Calculated 276 (280-300); Potassium 4.5 mEq/L (3.5-5.1); Sodium 130 mEq/L (136-145); eGFR For African Americans > 60 (> 60); eGFR For Non-African Americans > 60 (> 60)
[2022-03-17 05:22] LABS: % Iron Saturation 4 % (20-55); Iron 12 mcg/dL (65-175); Transferrin 239 mg/dL (203-362)
[2022-03-17 05:34] LABS: Ferritin 68 ng/mL (20-250)
[2022-03-17] MEDS: *HR* Enoxaparin 40 MG/0.4 ML SYRINGE SQ SCH (06:33)
[2022-03-17] MEDS: Gabapentin 300 MG CAPSULE PO SCH ×3 (07:59→19:36)
[2022-03-17] MEDS: Bumetanide 1 MG/4 ML VIAL IVP SCH ×2 (07:59→17:35)
[2022-03-17] MEDS: lisinopriL 5 MG TABLET PO SCH (07:59)
[2022-03-17] MEDS: Aspirin Enteric Coated 81 MG Tablet PO SCH ×2 (07:59→19:36)
[2022-03-17] MEDS: Chlorhexidine Rinse 15 ML MOUTHWASH MM SCH ×2 (08:01→19:37)
[2022-03-17] MEDS: polyethylene glycoL 3350 17 GM POWD.PACK PO SCH (08:01)
[2022-03-17] MEDS: Insulin LISPRO 300 UNITS/3 ML VIAL SUBQ SCH ×4 (08:04→19:37)
[2022-03-17] MEDS: Nicotine 7 MG PATCH.TD24 TD SCH (08:08)
[2022-03-17] MEDS ORDERED: Furosemide 40 MG/4 ML VIAL IVP ONE (08:24)
[2022-03-17] MEDS ORDERED: Albumin 25% 25gram/100mL 25 GM/100 ML IV.SOLN IVPB ONE (08:24)
[2022-03-17 08:51] LABS: ABG Base Excess 1 mEq/L (-2 to 3); ABG HCO3 25 mEq/L (21-27); ABG Oxygen Saturation 98 % (95-98); ABG PCO2 37 mmHg (35-45); ABG PH 7.44 pH Units (7.32-7.45); ABG PO2 98 mmHg (85-104); ABG TCO2 26 mEq/L (20-26)
[2022-03-17 09:02] LABS: Magnesium 2.1 mg/dL (1.6-2.6)
[2022-03-17 09:45] LABS: Bacteria,Urine Few per hpf (None-Few); Bilirubin,Urine Negative (Negative); Blood,Urine Moderate (Negative); Clarity,Urine Clear (Clear); Color,Urine Light-Yellow (Yellow); Glucose,Urine (UA) Normal (Normal); Hyaline Casts,Urine Moderate per lpf (None Seen); Ketones,Urine Negative (Negative); Leukocyte Esterase,Urine Negative (Negative); Mucus,Urine Few per lpf (None-Few); Nitrite,Urine Negative (Negative); Protein,Urine Trace mg/dL (Neg-Trace); RBC,Urine 15-30 per hpf (0-3); Renal Epithelial Cells,Urine Few per hpf (None-Few); Specific Gravity,Urine 1.017 (1.010-1.025); Transitional Epi Cells,Urine Few per hpf (None-Few); Urobilinogen,Urine Normal (Normal); WBC,Urine 0-3 per hpf (0-3)
[2022-03-17] MEDS ORDERED: *HR* Midazolam HCl 2 MG/2 ML VIAL IVP ONE ×2 (10:33→12:29)
[2022-03-17] MEDS ORDERED: *HR* FentaNYL (PF) 100 MCG/2 ML VIAL IVP ONE ×2 (10:33→12:27)
[2022-03-17] MEDS ORDERED: Vancomycin 2,000 MG/520 ML IV.SOLN IVPB ONE (10:45)
[2022-03-17] MEDS ORDERED: *HR* FentaNYL (PF) 100 MCG/2 ML VIAL ONE (12:09)
[2022-03-17] MEDS ORDERED: *HR* Midazolam HCl 5 MG/5 ML VIAL IVP ONE (12:09)
[2022-03-17] MEDS ORDERED: Lidocaine Viscous Oral Soln 15 ML SOLUTION ONE (12:09)
[2022-03-17] MEDS ORDERED: Lidocaine Viscous Oral Soln 15 ML SOLUTION MM ONE (12:30)
[2022-03-17] MEDS: Cefepime HCl 2,000 MG in 0.9 % Sodium Chloride 10 ML IVP SCH ×2 (15:23→23:20)
[2022-03-17] MEDS: *HR* OxyCODONE/APAP 5/325 TABLET PO PRN ×2 (15:23→19:36)
[2022-03-18] MEDS ORDERED: Vancomycin 2,000 MG/520 ML IV.SOLN IVPB ONE
[2022-03-18] MEDS: *HR* OxyCODONE/APAP 5/325 TABLET PO PRN ×6 (00:04→23:38)
[2022-03-18] MEDS: Amiodarone Premix 360 MG/200 ML BAG IVC SCH (03:17)
[2022-03-18 04:32] LABS: VBG Ionized Calcium 1.16 mmol/L (1.15-1.35)
[2022-03-18 04:47] LABS: Basophils % 0.2 %; Eosinophils # 0.4 K/mcL (0.0-0.6); Eosinophils % 2.2 %; Hematocrit 27.2 % (37.5-50.1); Hemoglobin 8.1 g/dL (12.9-16.9); Immature Granulocytes % 1.5 % (0-4); Lymphocytes # 1.5 K/mcL (0.6-4.6); Lymphocytes % 7.9 %; Mean Corpuscular HGB Conc 29.8 g/dL (31.6-35.5); Mean Corpuscular Hemoglobin 24.7 pg (28.0-33.3); Mean Corpuscular Volume 82.9 fL (83.0-100.0); Mean Platelet Volume 9.2 fL (9.4-12.4); Monocytes # 1.8 K/mcL (0.0-1.3); Monocytes % 9.2 %; Neutrophils # 15.4 K/mcL (1.6-8.9); Platelet Count 212 K/mcL (140-400); Red Blood Count 3.28 M/mcL (4.19-5.50); Red Cell Distribution Width 16.9 % (11.5-14.5); White Blood Count 19.5 K/mcL (4.3-11.1)
[2022-03-18 04:50] LABS: BUN/Creatinine Ratio 36 (6-26); Blood Urea Nitrogen 36 mg/dL (6-20); Calcium 8.3 mg/dL (8.6-10.3); Carbon Dioxide 29 mEq/L (23-29); Chloride 95 mEq/L (98-107); Glucose 122 mg/dL (70-105); Magnesium 2.3 mg/dL (1.6-2.6); Osmolality,Calculated 276 (280-300); Phosphorous 4.2 mg/dL (2.7-4.5); Sodium 128 mEq/L (136-145); eGFR For African Americans > 60 (> 60); eGFR For Non-African Americans > 60 (> 60)
[2022-03-18] MEDS: *HR* Enoxaparin 40 MG/0.4 ML SYRINGE SQ SCH (06:04)
[2022-03-18] MEDS: polyethylene glycoL 3350 17 GM POWD.PACK PO SCH (07:35)
[2022-03-18] MEDS: Nicotine 7 MG PATCH.TD24 TD SCH (07:35)
[2022-03-18] MEDS: Gabapentin 300 MG CAPSULE PO SCH ×3 (07:36→19:40)
[2022-03-18] MEDS: Aspirin Enteric Coated 81 MG Tablet PO SCH ×2 (07:37→19:40)
[2022-03-18] MEDS: lisinopriL 5 MG TABLET PO SCH (07:37)
[2022-03-18] MEDS: Bumetanide 1 MG/4 ML VIAL IVP SCH ×2 (07:38→15:43)
[2022-03-18] MEDS: Chlorhexidine Rinse 15 ML MOUTHWASH MM SCH ×2 (07:42→19:40)
[2022-03-18] MEDS: Insulin LISPRO 300 UNITS/3 ML VIAL SUBQ SCH ×4 (07:44→19:41)
[2022-03-18] MEDS: Cefepime HCl 2,000 MG in 0.9 % Sodium Chloride 10 ML IVP SCH ×3 (07:47→23:37)
[2022-03-18] MEDS ORDERED: Vancomycin 1,500 MG/265 ML IV.SOLN IVPB SCH (12:00)
[2022-03-18] MEDS: *HR* Amiodarone 200 MG TABLET PO SCH ×2 (12:17→19:40)
[2022-03-18] MEDS: GuaiFENesin Liq 200 MG/10 ML UDC PO PRN (21:12)
[2022-03-18] MEDS: Benzonatate 100 MG CAPSULE PO PRN (21:12)
[2022-03-18] MEDS: Acetylcysteine 10% 2 ML INHSOL IH SCH ×2 (21:37→23:16)
[2022-03-18] MEDS: Ipratropium/Albuterol Neb 3 ML IH SCH ×2 (21:41→23:17)
[2022-03-19] MEDS: Vancomycin 1,750 MG/517.5 ML IV.SOLN IVPB SCH ×2 (00:19→11:12)
[2022-03-19] MEDS: Ipratropium/Albuterol Neb 3 ML IH SCH ×6 (03:35→23:39)
[2022-03-19] MEDS: Acetylcysteine 10% 2 ML INHSOL IH SCH ×3 (03:36→10:50)
[2022-03-19] MEDS: *HR* OxyCODONE/APAP 5/325 TABLET PO PRN ×2 (04:03→09:39)
[2022-03-19 04:11] LABS: Basophils % 0.1 %; Eosinophils # 0.6 K/mcL (0.0-0.6); Eosinophils % 4.2 %; Hematocrit 23.7 % (37.5-50.1); Hemoglobin 7.2 g/dL (12.9-16.9); Lymphocytes # 1.3 K/mcL (0.6-4.6); Lymphocytes % 8.7 %; Mean Corpuscular HGB Conc 30.4 g/dL (31.6-35.5); Mean Corpuscular Hemoglobin 24.9 pg (28.0-33.3); Mean Platelet Volume 9.2 fL (9.4-12.4); Monocytes # 1.8 K/mcL (0.0-1.3); Monocytes % 12.5 %; Neutrophils # 10.5 K/mcL (1.6-8.9); Platelet Count 206 K/mcL (140-400); Red Blood Count 2.89 M/mcL (4.19-5.50); Red Cell Distribution Width 16.8 % (11.5-14.5); Segmented Neutrophils % 73.5 %; White Blood Count 14.3 K/mcL (4.3-11.1)
[2022-03-19 04:19] LABS: BUN/Creatinine Ratio 40 (6-26); Blood Urea Nitrogen 29 mg/dL (6-20); Calcium 7.7 mg/dL (8.6-10.3); Carbon Dioxide 28 mEq/L (23-29); Chloride 96 mEq/L (98-107); Glucose 108 mg/dL (70-105); Osmolality,Calculated 272 (280-300); Potassium 4.4 mEq/L (3.5-5.1); Sodium 128 mEq/L (136-145); eGFR For African Americans > 60 (> 60); eGFR For Non-African Americans > 60 (> 60)
[2022-03-19] MEDS: *HR* Enoxaparin 40 MG/0.4 ML SYRINGE SQ SCH (05:13)
[2022-03-19] MEDS: Cefepime HCl 2,000 MG in 0.9 % Sodium Chloride 10 ML IVP SCH ×2 (07:00→14:20)
[2022-03-19] MEDS: Bumetanide 1 MG/4 ML VIAL IVP SCH (07:00)
[2022-03-19] MEDS: Insulin LISPRO 300 UNITS/3 ML VIAL SUBQ SCH ×4 (07:11→20:24)
[2022-03-19] MEDS: polyethylene glycoL 3350 17 GM POWD.PACK PO SCH (08:08)
[2022-03-19] MEDS: Gabapentin 300 MG CAPSULE PO SCH ×3 (08:08→20:26)
[2022-03-19] MEDS: Aspirin Enteric Coated 81 MG Tablet PO SCH ×2 (08:08→20:27)
[2022-03-19] MEDS: Chlorhexidine Rinse 15 ML MOUTHWASH MM SCH (08:08)
[2022-03-19] MEDS: *HR* Amiodarone 200 MG TABLET PO SCH ×3 (08:08→20:26)
[2022-03-19] MEDS: lisinopriL 5 MG TABLET PO SCH (08:08)
[2022-03-19] MEDS: Benzonatate 100 MG CAPSULE PO PRN (08:13)
[2022-03-19] MEDS: Nicotine 7 MG PATCH.TD24 TD SCH (08:14)
[2022-03-19] MEDS: Furosemide 240 MG in 0.9 % Sodium Chloride 96 ML IVC SCH (09:28)
[2022-03-19] MEDS ORDERED: 0.9 % Sodium Chloride 250 ML ONE (12:24)
[2022-03-19] MEDS: GuaiFENesin Liq 200 MG/10 ML UDC PO PRN (12:29)
[2022-03-19] MEDS: Pantoprazole 40 MG VIAL IVP SCH (14:20)
[2022-03-19 15:17] LABS: BUN/Creatinine Ratio 33 (6-26); Blood Urea Nitrogen 27 mg/dL (6-20); Calcium 7.8 mg/dL (8.6-10.3); Carbon Dioxide 27 mEq/L (23-29); Chloride 97 mEq/L (98-107); Glucose 146 mg/dL (70-105); Magnesium 1.8 mg/dL (1.6-2.6); Osmolality,Calculated 278 (280-300); Potassium 4.4 mEq/L (3.5-5.1); Sodium 130 mEq/L (136-145); eGFR For African Americans > 60 (> 60); eGFR For Non-African Americans > 60 (> 60)
[2022-03-19 17:48] LABS: Basophils % 0.2 %; Eosinophils # 0.5 K/mcL (0.0-0.6); Eosinophils % 3.6 %; Hematocrit 26.4 % (37.5-50.1); Immature Granulocytes % 0.9 % (0-4); Lymphocytes # 0.9 K/mcL (0.6-4.6); Lymphocytes % 7.1 %; Mean Corpuscular HGB Conc 30.3 g/dL (31.6-35.5); Mean Corpuscular Hemoglobin 25.1 pg (28.0-33.3); Mean Corpuscular Volume 82.8 fL (83.0-100.0); Monocytes # 1.4 K/mcL (0.0-1.3); Monocytes % 11.4 %; Neutrophils # 9.7 K/mcL (1.6-8.9); Nucleated Red Blood Cells 0.2 /100 WBC (0); Platelet Count 216 K/mcL (140-400); Red Blood Count 3.19 M/mcL (4.19-5.50); Red Cell Distribution Width 16.7 % (11.5-14.5); Segmented Neutrophils % 76.8 %; White Blood Count 12.6 K/mcL (4.3-11.1)
[2022-03-19] MEDS ORDERED: SODIUM CHLORIDE IVPB SCH (18:45)
[2022-03-19] MEDS ORDERED: MAGNESIUM SULFATE IVPB SCH (18:45)
[2022-03-19] MEDS ORDERED: Ipratropium/Albuterol Neb 3 ML IH SCH (20:00)
[2022-03-19] MEDS: SODIUM CHLORIDE IVPB SCH ×2 (20:27→21:27)
[2022-03-19] MEDS: MAGNESIUM SULFATE IVPB SCH ×2 (20:27→21:27)
[2022-03-20] MEDS: Vancomycin 1,750 MG/517.5 ML IV.SOLN IVPB SCH ×2 (00:25→11:43)
[2022-03-20] MEDS: Cefepime HCl 2,000 MG in 0.9 % Sodium Chloride 10 ML IVP SCH ×3 (00:26→14:27)
[2022-03-20] MEDS: Acetaminophen 325 MG TABLET PO PRN ×2 (02:12→20:04)
[2022-03-20] MEDS: Benzonatate 100 MG CAPSULE PO PRN ×2 (03:31→10:02)
[2022-03-20] MEDS: Ipratropium/Albuterol Neb 3 ML IH SCH ×7 (03:41→23:29)
[2022-03-20 04:37] LABS: Basophils % 0.3 %; Eosinophils # 0.4 K/mcL (0.0-0.6); Eosinophils % 3.6 %; Hematocrit 24.7 % (37.5-50.1); Hemoglobin 7.6 g/dL (12.9-16.9); Lymphocytes # 0.7 K/mcL (0.6-4.6); Lymphocytes % 6.1 %; Mean Corpuscular HGB Conc 30.8 g/dL (31.6-35.5); Mean Corpuscular Hemoglobin 25.1 pg (28.0-33.3); Mean Corpuscular Volume 81.5 fL (83.0-100.0); Mean Platelet Volume 8.9 fL (9.4-12.4); Monocytes # 1.7 K/mcL (0.0-1.3); Monocytes % 14.2 %; Neutrophils # 8.8 K/mcL (1.6-8.9); Platelet Count 234 K/mcL (140-400); Red Blood Count 3.03 M/mcL (4.19-5.50); Red Cell Distribution Width 16.9 % (11.5-14.5); Segmented Neutrophils % 74.8 %; White Blood Count 11.7 K/mcL (4.3-11.1)
[2022-03-20 04:58] LABS: BUN/Creatinine Ratio 33 (6-26); Blood Urea Nitrogen 27 mg/dL (6-20); Calcium 7.3 mg/dL (8.6-10.3); Carbon Dioxide 26 mEq/L (23-29); Chloride 98 mEq/L (98-107); Glucose 111 mg/dL (70-105); Osmolality,Calculated 280 (280-300); Potassium 3.9 mEq/L (3.5-5.1); Sodium 132 mEq/L (136-145); eGFR For African Americans > 60 (> 60); eGFR For Non-African Americans > 60 (> 60)
[2022-03-20] MEDS: *HR* Enoxaparin 40 MG/0.4 ML SYRINGE SQ SCH (06:19)
[2022-03-20] MEDS: *HR* OxyCODONE/APAP 5/325 TABLET PO PRN ×2 (06:19→12:00)
[2022-03-20] MEDS: Aspirin Enteric Coated 81 MG Tablet PO SCH ×2 (07:51→20:05)
[2022-03-20] MEDS: Pantoprazole 40 MG VIAL IVP SCH (07:51)
[2022-03-20] MEDS: Gabapentin 300 MG CAPSULE PO SCH ×3 (07:51→20:04)
[2022-03-20] MEDS: polyethylene glycoL 3350 17 GM POWD.PACK PO SCH (07:51)
[2022-03-20] MEDS: *HR* Amiodarone 200 MG TABLET PO SCH ×2 (07:52→20:05)
[2022-03-20] MEDS: lisinopriL 5 MG TABLET PO SCH (07:52)
[2022-03-20] MEDS: Insulin LISPRO 300 UNITS/3 ML VIAL SUBQ SCH ×4 (07:56→20:06)
[2022-03-20 07:57] LABS: Magnesium 2.3 mg/dL (1.6-2.6)
[2022-03-20] MEDS: Furosemide 240 MG in 0.9 % Sodium Chloride 96 ML IVC SCH (07:59)
[2022-03-20] MEDS: Nicotine 7 MG PATCH.TD24 TD SCH (08:02)
[2022-03-20] MEDS ORDERED: Calcium Gluconate 1gm/50mL 1 GM/50 ML BAG IVPB PRN (08:27)
[2022-03-20 08:58] LABS: VBG Ionized Calcium 1.03 mmol/L (1.15-1.35)
[2022-03-20] MEDS: Furosemide 40 MG/4 ML VIAL IV SCH ×2 (09:32→14:26)
[2022-03-20] MEDS ORDERED: 0.9 % Sodium Chloride 250 ML ONE (10:12)
[2022-03-20 14:48] LABS: Basophils # 0.1 K/mcL (0.0-0.2); Basophils % 0.4 %; Eosinophils # 0.4 K/mcL (0.0-0.6); Eosinophils % 2.9 %; Hemoglobin 8.5 g/dL (12.9-16.9); Immature Granulocytes % 2.3 % (0-4); Lymphocytes % 7.3 %; Mean Corpuscular HGB Conc 30.4 g/dL (31.6-35.5); Mean Corpuscular Hemoglobin 25.8 pg (28.0-33.3); Mean Corpuscular Volume 84.8 fL (83.0-100.0); Mean Platelet Volume 8.9 fL (9.4-12.4); Monocytes # 2.3 K/mcL (0.0-1.3); Monocytes % 16.4 %; Neutrophils # 9.7 K/mcL (1.6-8.9); Platelet Count 251 K/mcL (140-400); Red Cell Distribution Width 17.5 % (11.5-14.5); Segmented Neutrophils % 70.7 %; White Blood Count 13.7 K/mcL (4.3-11.1)
[2022-03-20 17:47] LABS: BUN/Creatinine Ratio 30 (6-26); Blood Urea Nitrogen 27 mg/dL (6-20); Calcium 7.4 mg/dL (8.6-10.3); Carbon Dioxide 26 mEq/L (23-29); Chloride 98 mEq/L (98-107); Glucose 139 mg/dL (70-105); Osmolality,Calculated 275 (280-300); Potassium 3.8 mEq/L (3.5-5.1); Sodium 129 mEq/L (136-145); eGFR For African Americans > 60 (> 60); eGFR For Non-African Americans > 60 (> 60)
[2022-03-21] MEDS: Vancomycin 1,750 MG/517.5 ML IV.SOLN IVPB SCH ×3 (01:03→23:48)
[2022-03-21] MEDS: Cefepime HCl 2,000 MG in 0.9 % Sodium Chloride 10 ML IVP SCH ×4 (01:04→23:48)
[2022-03-21] MEDS: Ipratropium/Albuterol Neb 3 ML IH SCH ×6 (03:04→23:33)
[2022-03-21] MEDS: Acetaminophen 325 MG TABLET PO PRN ×3 (03:51→21:32)
[2022-03-21] MEDS: Benzonatate 100 MG CAPSULE PO PRN ×3 (03:52→21:33)
[2022-03-21] MEDS: *HR* Enoxaparin 40 MG/0.4 ML SYRINGE SQ SCH (04:36)
[2022-03-21 05:12] LABS: Basophils % 0.4 %; Eosinophils # 0.6 K/mcL (0.0-0.6); Eosinophils % 6.1 %; Hematocrit 27.1 % (37.5-50.1); Hemoglobin 8.2 g/dL (12.9-16.9); Immature Granulocytes % 1.9 % (0-4); Lymphocytes # 1.1 K/mcL (0.6-4.6); Lymphocytes % 10.7 %; Mean Corpuscular HGB Conc 30.3 g/dL (31.6-35.5); Mean Corpuscular Hemoglobin 25.4 pg (28.0-33.3); Mean Corpuscular Volume 83.9 fL (83.0-100.0); Mean Platelet Volume 8.9 fL (9.4-12.4); Monocytes # 1.7 K/mcL (0.0-1.3); Monocytes % 16.8 %; Neutrophils # 6.4 K/mcL (1.6-8.9); Platelet Count 243 K/mcL (140-400); Red Blood Count 3.23 M/mcL (4.19-5.50); Red Cell Distribution Width 17.2 % (11.5-14.5); Segmented Neutrophils % 64.1 %; White Blood Count 9.9 K/mcL (4.3-11.1)
[2022-03-21 05:32] LABS: Alanine Aminotransferase 36 Units/L (7-52); Alkaline Phosphatase 51 Units/L (34-104); Aspartate Amino Transferase 32 Units/L (13-39); BUN/Creatinine Ratio 29 (6-26); Bilirubin,Total 0.4 mg/dL (0.3-1.0); Blood Urea Nitrogen 27 mg/dL (6-20); Calcium 7.9 mg/dL (8.6-10.3); Carbon Dioxide 28 mEq/L (23-29); Chloride 100 mEq/L (98-107); Globulin 2.9 g/dL (2.4-3.5); Glucose 115 mg/dL (70-105); Magnesium 2.2 mg/dL (1.6-2.6); Osmolality,Calculated 282 (280-300); Sodium 133 mEq/L (136-145); Total Protein 5.9 g/dL (6.4-8.9); eGFR For African Americans > 60 (> 60); eGFR For Non-African Americans > 60 (> 60)
[2022-03-21 07:15] LABS: INR 1.4; Prothrombin Time 15.6 Seconds (9.4-12.1)
[2022-03-21] MEDS: *HR* Amiodarone 200 MG TABLET PO SCH ×2 (07:42→20:22)
[2022-03-21] MEDS: Gabapentin 300 MG CAPSULE PO SCH ×3 (07:42→20:22)
[2022-03-21] MEDS: Nicotine 7 MG PATCH.TD24 TD SCH (07:44)
[2022-03-21] MEDS: Pantoprazole 40 MG VIAL IVP SCH (07:45)
[2022-03-21] MEDS: lisinopriL 5 MG TABLET PO SCH (07:45)
[2022-03-21] MEDS: polyethylene glycoL 3350 17 GM POWD.PACK PO SCH (07:46)
[2022-03-21] MEDS: Insulin LISPRO 300 UNITS/3 ML VIAL SUBQ SCH ×4 (07:57→21:31)
[2022-03-21] MEDS: Aspirin Enteric Coated 81 MG Tablet PO SCH ×2 (08:26→20:23)
[2022-03-21] MEDS: Furosemide 40 MG/4 ML VIAL IV SCH ×3 (08:30→20:22)
[2022-03-21] MEDS: *HR* OxyCODONE/APAP 5/325 TABLET PO PRN ×2 (12:01→15:49)
[2022-03-21] MEDS ORDERED: Lidocaine -MPF 1% 5 ML AMPUL ONE (14:18)
[2022-03-21 19:01] LABS: RBC,Pleural Fluid 233000 RBC/mcL
[2022-03-21 19:41] LABS: Total Protein,Pleural Fluid 3.4 g/dL
[2022-03-21 20:55] LABS: Monocytes,Pleural Fluid 0 %
[2022-03-21 20:56] LABS: Appearance of Pleural Fl Bloody (Clear)
[2022-03-21] MEDS: *HR* LORazepam 1 MG TABLET PO PRN (23:18)
[2022-03-22] MEDS: Ipratropium/Albuterol Neb 3 ML IH SCH ×5 (03:32→20:15)
[2022-03-22] MEDS: *HR* Enoxaparin 40 MG/0.4 ML SYRINGE SQ SCH (04:51)
[2022-03-22 06:15] LABS: INR 1.3; Prothrombin Time 14.7 Seconds (9.4-12.1)
[2022-03-22 06:22] LABS: Alanine Aminotransferase 46 Units/L (7-52); Alkaline Phosphatase 52 Units/L (34-104); Aspartate Amino Transferase 41 Units/L (13-39); BUN/Creatinine Ratio 27 (6-26); Bilirubin,Total 0.4 mg/dL (0.3-1.0); Blood Urea Nitrogen 24 mg/dL (6-20); Calcium 8.3 mg/dL (8.6-10.3); Carbon Dioxide 31 mEq/L (23-29); Chloride 98 mEq/L (98-107); Globulin 3.1 g/dL (2.4-3.5); Glucose 106 mg/dL (70-105); Magnesium 2.1 mg/dL (1.6-2.6); Osmolality,Calculated 286 (280-300); Potassium 4.1 mEq/L (3.5-5.1); Sodium 136 mEq/L (136-145); Total Protein 6.1 g/dL (6.4-8.9); eGFR For African Americans > 60 (> 60); eGFR For Non-African Americans > 60 (> 60)
[2022-03-22 08:54] LABS: Lactate Dehydrogenase 297 Units/L (140-271)
[2022-03-22] MEDS: Cefepime HCl 2,000 MG in 0.9 % Sodium Chloride 10 ML IVP SCH ×2 (09:01→15:48)
[2022-03-22] MEDS: Aspirin Enteric Coated 81 MG Tablet PO SCH ×2 (09:02→20:50)
[2022-03-22] MEDS: Pantoprazole 40 MG VIAL IVP SCH (09:02)
[2022-03-22] MEDS: Furosemide 40 MG/4 ML VIAL IV SCH ×2 (09:02→15:48)
[2022-03-22] MEDS: *HR* Amiodarone 200 MG TABLET PO SCH ×2 (09:02→20:50)
[2022-03-22] MEDS: Gabapentin 300 MG CAPSULE PO SCH ×3 (09:02→20:49)
[2022-03-22] MEDS: lisinopriL 5 MG TABLET PO SCH (09:03)
[2022-03-22] MEDS: Nicotine 7 MG PATCH.TD24 TD SCH (09:03)
[2022-03-22] MEDS: polyethylene glycoL 3350 17 GM POWD.PACK PO SCH (09:03)
[2022-03-22] MEDS: Insulin LISPRO 300 UNITS/3 ML VIAL SUBQ SCH ×4 (09:04→21:17)
[2022-03-22] MEDS: Vancomycin 1,750 MG/517.5 ML IV.SOLN IVPB SCH (11:49)
[2022-03-22] MEDS: *HR* OxyCODONE/APAP 5/325 TABLET PO PRN (16:40)
[2022-03-22] MEDS: Acetaminophen 325 MG TABLET PO PRN (20:49)
[2022-03-22] MEDS: Benzonatate 100 MG CAPSULE PO PRN (20:50)
[2022-03-22] MEDS: *HR* LORazepam 1 MG TABLET PO PRN (20:54)
[2022-03-23] MEDS: Cefepime HCl 2,000 MG in 0.9 % Sodium Chloride 10 ML IVP SCH ×3 (00:08→15:06)
[2022-03-23] MEDS: Vancomycin 1,750 MG/517.5 ML IV.SOLN IVPB SCH ×2 (00:09→11:47)
[2022-03-23] MEDS: Ipratropium/Albuterol Neb 3 ML IH SCH ×7 (00:19→23:51)
[2022-03-23] MEDS: *HR* OxyCODONE/APAP 5/325 TABLET PO PRN ×4 (03:58→22:01)
[2022-03-23] MEDS: *HR* Enoxaparin 40 MG/0.4 ML SYRINGE SQ SCH (06:10)
[2022-03-23] MEDS: lisinopriL 5 MG TABLET PO SCH (08:00)
[2022-03-23] MEDS: Gabapentin 300 MG CAPSULE PO SCH ×3 (08:01→20:59)
[2022-03-23] MEDS: Nicotine 7 MG PATCH.TD24 TD SCH (08:01)
[2022-03-23] MEDS: Aspirin Enteric Coated 81 MG Tablet PO SCH ×2 (08:01→20:59)
[2022-03-23] MEDS: *HR* Amiodarone 200 MG TABLET PO SCH ×2 (08:01→20:59)
[2022-03-23] MEDS: polyethylene glycoL 3350 17 GM POWD.PACK PO SCH (08:01)
[2022-03-23 08:47] LABS: Hematocrit 26.7 % (37.5-50.1); Hemoglobin 8.1 g/dL (12.9-16.9); Mean Corpuscular HGB Conc 30.3 g/dL (31.6-35.5); Mean Corpuscular Hemoglobin 25.6 pg (28.0-33.3); Mean Corpuscular Volume 84.2 fL (83.0-100.0); Mean Platelet Volume 8.2 fL (9.4-12.4); Platelet Count 315 K/mcL (140-400); Red Blood Count 3.17 M/mcL (4.19-5.50); Red Cell Distribution Width 17.5 % (11.5-14.5); White Blood Count 7.5 K/mcL (4.3-11.1)
[2022-03-23 08:57] LABS: INR 1.4; Prothrombin Time 15.1 Seconds (9.4-12.1)
[2022-03-23 09:10] LABS: Alanine Aminotransferase 40 Units/L (7-52); Albumin 2.9 g/dL (3.5-5.7); Albumin/Globulin Ratio 0.9 (1.1-2.2); Alkaline Phosphatase 51 Units/L (34-104); Aspartate Amino Transferase 31 Units/L (13-39); BUN/Creatinine Ratio 35 (6-26); Bilirubin,Total 0.4 mg/dL (0.3-1.0); Blood Urea Nitrogen 24 mg/dL (6-20); Calcium 8.2 mg/dL (8.6-10.3); Carbon Dioxide 30 mEq/L (23-29); Chloride 98 mEq/L (98-107); Globulin 3.2 g/dL (2.4-3.5); Glucose 94 mg/dL (70-105); Osmolality,Calculated 282 (280-300); Potassium 4.1 mEq/L (3.5-5.1); Sodium 134 mEq/L (136-145); Total Protein 6.1 g/dL (6.4-8.9)
[2022-03-23] MEDS: Insulin LISPRO 300 UNITS/3 ML VIAL SUBQ SCH ×4 (09:23→21:00)
[2022-03-24] MEDS: Cefepime HCl 2,000 MG in 0.9 % Sodium Chloride 10 ML IVP SCH ×3 (01:00→14:59)
[2022-03-24 02:03] LABS: Hematocrit 25.4 % (37.5-50.1); Hemoglobin 7.7 g/dL (12.9-16.9); Mean Corpuscular HGB Conc 30.3 g/dL (31.6-35.5); Mean Corpuscular Hemoglobin 25.5 pg (28.0-33.3); Mean Corpuscular Volume 84.1 fL (83.0-100.0); Mean Platelet Volume 8.2 fL (9.4-12.4); Platelet Count 289 K/mcL (140-400); Red Blood Count 3.02 M/mcL (4.19-5.50); Red Cell Distribution Width 17.5 % (11.5-14.5)
[2022-03-24 02:12] LABS: INR 1.3; Prothrombin Time 14.9 Seconds (9.4-12.1)
[2022-03-24 02:17] LABS: Alanine Aminotransferase 35 Units/L (7-52); Albumin 2.7 g/dL (3.5-5.7); Albumin/Globulin Ratio 0.9 (1.1-2.2); Alkaline Phosphatase 44 Units/L (34-104); Aspartate Amino Transferase 29 Units/L (13-39); BUN/Creatinine Ratio 36 (6-26); Bilirubin,Total 0.3 mg/dL (0.3-1.0); Blood Urea Nitrogen 23 mg/dL (6-20); Calcium 7.9 mg/dL (8.6-10.3); Carbon Dioxide 30 mEq/L (23-29); Chloride 100 mEq/L (98-107); Globulin 3.1 g/dL (2.4-3.5); Glucose 107 mg/dL (70-105); Magnesium 2.2 mg/dL (1.6-2.6); Osmolality,Calculated 282 (280-300); Sodium 134 mEq/L (136-145); Total Protein 5.8 g/dL (6.4-8.9)
[2022-03-24] MEDS: *HR* OxyCODONE/APAP 5/325 TABLET PO PRN ×5 (03:31→20:42)
[2022-03-24] MEDS: Ipratropium/Albuterol Neb 3 ML IH SCH ×6 (04:18→23:25)
[2022-03-24] MEDS: *HR* Enoxaparin 40 MG/0.4 ML SYRINGE SQ SCH ×2 (06:19→15:55)
[2022-03-24] MEDS: Insulin LISPRO 300 UNITS/3 ML VIAL SUBQ SCH ×4 (06:20→23:37)
[2022-03-24] MEDS: Nicotine 7 MG PATCH.TD24 TD SCH (07:53)
[2022-03-24] MEDS: *HR* Amiodarone 200 MG TABLET PO SCH ×2 (07:54→20:42)
[2022-03-24] MEDS: Aspirin Enteric Coated 81 MG Tablet PO SCH ×2 (07:54→20:42)
[2022-03-24] MEDS: lisinopriL 5 MG TABLET PO SCH (07:54)
[2022-03-24] MEDS: Gabapentin 300 MG CAPSULE PO SCH ×3 (07:54→20:43)
[2022-03-24] MEDS: polyethylene glycoL 3350 17 GM POWD.PACK PO SCH (07:55)
[2022-03-24] MEDS: *HR* LORazepam 1 MG TABLET PO PRN ×2 (10:23→14:59)
[2022-03-24] MEDS: Benzonatate 100 MG CAPSULE PO PRN (15:04)
[2022-03-24] MEDS: Bumetanide 1 MG/4 ML VIAL IVP SCH (16:40)
[2022-03-24] MEDS ORDERED: Bumetanide 1 MG TABLET PO SCH (18:00)
[2022-03-25] MEDS: *HR* LORazepam 1 MG TABLET PO PRN ×4 (01:52→22:07)
[2022-03-25] MEDS: Benzonatate 100 MG CAPSULE PO PRN ×2 (03:26→16:54)
[2022-03-25] MEDS: *HR* OxyCODONE/APAP 5/325 TABLET PO PRN ×3 (03:51→15:46)
[2022-03-25] MEDS: Cefepime HCl 2,000 MG in 0.9 % Sodium Chloride 10 ML IVP SCH ×3 (03:52→15:46)
[2022-03-25] MEDS: Ipratropium/Albuterol Neb 3 ML IH SCH ×6 (03:55→23:24)
[2022-03-25 03:58] LABS: VBG Ionized Calcium 1.11 mmol/L (1.15-1.35)
[2022-03-25 04:17] LABS: Hematocrit 26.4 % (37.5-50.1); Hemoglobin 7.9 g/dL (12.9-16.9); Mean Corpuscular HGB Conc 29.9 g/dL (31.6-35.5); Mean Corpuscular Hemoglobin 25.3 pg (28.0-33.3); Mean Corpuscular Volume 84.6 fL (83.0-100.0); Mean Platelet Volume 8.3 fL (9.4-12.4); Platelet Count 304 K/mcL (140-400); Red Blood Count 3.12 M/mcL (4.19-5.50); Red Cell Distribution Width 17.6 % (11.5-14.5); White Blood Count 5.7 K/mcL (4.3-11.1)
[2022-03-25] MEDS: Nicotine 7 MG PATCH.TD24 TD SCH (08:35)
[2022-03-25] MEDS: Insulin LISPRO 300 UNITS/3 ML VIAL SUBQ SCH ×4 (08:35→22:07)
[2022-03-25] MEDS: Bumetanide 1 MG/4 ML VIAL IVP SCH ×2 (08:37→16:56)
[2022-03-25] MEDS: Aspirin Enteric Coated 81 MG Tablet PO SCH ×2 (08:39→22:06)
[2022-03-25] MEDS: Gabapentin 300 MG CAPSULE PO SCH ×3 (08:40→22:07)
[2022-03-25] MEDS: *HR* Amiodarone 200 MG TABLET PO SCH ×2 (08:40→22:07)
[2022-03-25] MEDS: polyethylene glycoL 3350 17 GM POWD.PACK PO SCH (08:40)
[2022-03-25] MEDS: lisinopriL 5 MG TABLET PO SCH (08:40)
[2022-03-25 11:29] LABS: ABG Base Excess 4 mEq/L (-2 to 3); ABG HCO3 29 mEq/L (21-27); ABG Oxygen Saturation 95 % (95-98); ABG PCO2 42 mmHg (35-45); ABG PH 7.44 pH Units (7.32-7.45); ABG PO2 74 mmHg (85-104); ABG TCO2 30 mEq/L (20-26)
[2022-03-25] MEDS ORDERED: Vancomycin 1,750 MG/517.5 ML IV.SOLN IVPB SCH (17:00)
[2022-03-25] MEDS: Vancomycin 1,750 MG/517.5 ML IV.SOLN IVPB SCH (22:00)
[2022-03-26] MEDS: Ipratropium/Albuterol Neb 3 ML IH SCH ×6 (03:40→23:21)
[2022-03-26 05:35] LABS: Hematocrit 28.2 % (37.5-50.1); Hemoglobin 8.4 g/dL (12.9-16.9); Mean Corpuscular HGB Conc 29.8 g/dL (31.6-35.5); Mean Corpuscular Hemoglobin 25.5 pg (28.0-33.3); Mean Corpuscular Volume 85.5 fL (83.0-100.0); Mean Platelet Volume 8.4 fL (9.4-12.4); Platelet Count 322 K/mcL (140-400); Red Cell Distribution Width 17.3 % (11.5-14.5); White Blood Count 6.1 K/mcL (4.3-11.1)
[2022-03-26 05:52] LABS: BUN/Creatinine Ratio 32 (6-26); Blood Urea Nitrogen 25 mg/dL (6-20); Calcium 8.4 mg/dL (8.6-10.3); Carbon Dioxide 32 mEq/L (23-29); Chloride 101 mEq/L (98-107); Glucose 114 mg/dL (70-105); Magnesium 1.9 mg/dL (1.6-2.6); Osmolality,Calculated 291 (280-300); Phosphorous 4.2 mg/dL (2.7-4.5); Potassium 3.8 mEq/L (3.5-5.1); Sodium 138 mEq/L (136-145)
[2022-03-26] MEDS: *HR* Enoxaparin 40 MG/0.4 ML SYRINGE SQ SCH (06:20)
[2022-03-26] MEDS: *HR* LORazepam 1 MG TABLET PO PRN ×2 (06:21→13:12)
[2022-03-26] MEDS ORDERED: Ipratropium/Albuterol Neb 3 ML ONE (07:54)
[2022-03-26] MEDS: Insulin LISPRO 300 UNITS/3 ML VIAL SUBQ SCH ×4 (08:41→20:37)
[2022-03-26] MEDS: Cefepime HCl 2,000 MG in 0.9 % Sodium Chloride 10 ML IVP SCH ×3 (08:42→15:35)
[2022-03-26] MEDS: Bumetanide 1 MG/4 ML VIAL IVP SCH ×2 (08:46→17:06)
[2022-03-26] MEDS: Nicotine 7 MG PATCH.TD24 TD SCH (08:51)
[2022-03-26] MEDS: *HR* Amiodarone 200 MG TABLET PO SCH ×2 (08:52→20:17)
[2022-03-26] MEDS: Aspirin Enteric Coated 81 MG Tablet PO SCH ×2 (08:53→20:18)
[2022-03-26] MEDS: Gabapentin 300 MG CAPSULE PO SCH ×3 (08:53→20:18)
[2022-03-26] MEDS: polyethylene glycoL 3350 17 GM POWD.PACK PO SCH (08:53)
[2022-03-26] MEDS: lisinopriL 5 MG TABLET PO SCH (08:53)
[2022-03-26] MEDS: Vancomycin 1,750 MG/517.5 ML IV.SOLN IVPB SCH ×2 (11:49→23:58)
[2022-03-26] MEDS: DORNASE ALFA IX SCH ×2 (13:07→18:20)
[2022-03-26] MEDS: WATER FOR INJ IX SCH ×2 (13:07→18:20)
[2022-03-26] MEDS: Alteplase (Cathflo) 10 MG in 0.9 % Sodium Chloride 50 ML IX SCH ×2 (13:09→18:20)
[2022-03-26] MEDS: *HR* OxyCODONE/APAP 5/325 TABLET PO PRN ×3 (15:41→20:18)
[2022-03-26] MEDS: Benzonatate 100 MG CAPSULE PO PRN (20:17)
[2022-03-27] MEDS: *HR* LORazepam 1 MG TABLET PO PRN (02:15)
[2022-03-27] MEDS: Ipratropium/Albuterol Neb 3 ML IH SCH ×6 (04:13→23:24)
[2022-03-27] MEDS: *HR* OxyCODONE/APAP 5/325 TABLET PO PRN ×4 (04:44→22:06)
[2022-03-27] MEDS: *HR* Enoxaparin 40 MG/0.4 ML SYRINGE SQ SCH (04:44)
[2022-03-27 07:03] LABS: Hemoglobin 8.3 g/dL (12.9-16.9); Mean Corpuscular HGB Conc 29.6 g/dL (31.6-35.5); Mean Corpuscular Hemoglobin 24.9 pg (28.0-33.3); Mean Corpuscular Volume 84.1 fL (83.0-100.0); Mean Platelet Volume 8.3 fL (9.4-12.4); Platelet Count 318 K/mcL (140-400); Red Blood Count 3.33 M/mcL (4.19-5.50); Red Cell Distribution Width 17.4 % (11.5-14.5); White Blood Count 8.6 K/mcL (4.3-11.1)
[2022-03-27 07:23] LABS: BUN/Creatinine Ratio 33 (6-26); Blood Urea Nitrogen 23 mg/dL (6-20); Carbon Dioxide 31 mEq/L (23-29); Chloride 101 mEq/L (98-107); Glucose 101 mg/dL (70-105); Magnesium 1.8 mg/dL (1.6-2.6); Osmolality,Calculated 290 (280-300); Phosphorous 3.5 mg/dL (2.7-4.5); Potassium 3.9 mEq/L (3.5-5.1); Sodium 138 mEq/L (136-145)
[2022-03-27] MEDS: Aspirin Enteric Coated 81 MG Tablet PO SCH ×3 (08:09→20:03)
[2022-03-27] MEDS: lisinopriL 5 MG TABLET PO SCH ×2 (08:09→10:13)
[2022-03-27] MEDS: Insulin LISPRO 300 UNITS/3 ML VIAL SUBQ SCH ×4 (08:09→20:04)
[2022-03-27] MEDS: Gabapentin 300 MG CAPSULE PO SCH ×4 (08:09→20:07)
[2022-03-27] MEDS: *HR* Amiodarone 200 MG TABLET PO SCH ×3 (08:09→20:03)
[2022-03-27] MEDS: Bumetanide 1 MG/4 ML VIAL IVP SCH ×2 (08:10→17:58)
[2022-03-27] MEDS: Nicotine 7 MG PATCH.TD24 TD SCH ×2 (08:10→10:13)
[2022-03-27] MEDS: polyethylene glycoL 3350 17 GM POWD.PACK PO SCH ×2 (08:21→10:12)
[2022-03-27] MEDS ORDERED: Calcium Gluconate 1gm/50mL 1 GM/50 ML BAG IVPB PRN (08:53)
[2022-03-27] MEDS ORDERED: *HR* LORazepam 1 MG TABLET PO PRN (08:53)
[2022-03-27] MEDS ORDERED: Acetaminophen 325 MG TABLET PO PRN (08:53)
[2022-03-27] MEDS ORDERED: Dextrose Gel 15 GM/37.5 ML TUBE PO PRN ×2 (08:53)
[2022-03-27] MEDS ORDERED: D5% in Water 1,000 ML IVC PRN (08:53)
[2022-03-27] MEDS ORDERED: *HR* Dextrose 50 % in Water (Syg) 50 ML SYRINGE IVP PRN (08:53)
[2022-03-27] MEDS: DORNASE ALFA IX SCH ×2 (10:10→19:57)
[2022-03-27] MEDS: WATER FOR INJ IX SCH ×2 (10:10→19:57)
[2022-03-27] MEDS: Alteplase (Cathflo) 10 MG in 0.9 % Sodium Chloride 50 ML IX SCH ×2 (10:10→19:59)
[2022-03-27] MEDS ORDERED: Vancomycin 1,750 MG/517.5 ML IV.SOLN IVPB SCH (11:00)
[2022-03-27] MEDS ORDERED: Vancomycin 2,000 MG/520 ML IV.SOLN IVPB SCH (23:00)
[2022-03-28] MEDS: *HR* OxyCODONE/APAP 5/325 TABLET PO PRN ×4 (03:11→20:22)
[2022-03-28] MEDS: Ipratropium/Albuterol Neb 3 ML IH SCH ×6 (03:55→23:54)
[2022-03-28 05:25] LABS: Hematocrit 31.8 % (37.5-50.1); Hemoglobin 9.5 g/dL (12.9-16.9); Mean Corpuscular HGB Conc 29.9 g/dL (31.6-35.5); Mean Corpuscular Hemoglobin 25.2 pg (28.0-33.3); Mean Corpuscular Volume 84.4 fL (83.0-100.0); Mean Platelet Volume 8.4 fL (9.4-12.4); Platelet Count 338 K/mcL (140-400); Red Blood Count 3.77 M/mcL (4.19-5.50); Red Cell Distribution Width 17.6 % (11.5-14.5); White Blood Count 9.3 K/mcL (4.3-11.1)
[2022-03-28] MEDS: *HR* Enoxaparin 40 MG/0.4 ML SYRINGE SQ SCH (06:36)
[2022-03-28 06:41] LABS: BUN/Creatinine Ratio 32 (6-26); Blood Urea Nitrogen 25 mg/dL (6-20); Calcium 8.2 mg/dL (8.6-10.3); Carbon Dioxide 32 mEq/L (23-29); Chloride 100 mEq/L (98-107); Glucose 132 mg/dL (70-105); Magnesium 1.8 mg/dL (1.6-2.6); Osmolality,Calculated 292 (280-300); Potassium 3.8 mEq/L (3.5-5.1); Sodium 138 mEq/L (136-145)
[2022-03-28] MEDS: DORNASE ALFA IX SCH (08:37)
[2022-03-28] MEDS: Alteplase (Cathflo) 10 MG in 0.9 % Sodium Chloride 50 ML IX SCH (08:37)
[2022-03-28] MEDS: WATER FOR INJ IX SCH (08:37)
[2022-03-28] MEDS: polyethylene glycoL 3350 17 GM POWD.PACK PO SCH (08:40)
[2022-03-28] MEDS: Bumetanide 1 MG/4 ML VIAL IVP SCH ×2 (08:42→18:14)
[2022-03-28] MEDS: Nicotine 7 MG PATCH.TD24 TD SCH (08:42)
[2022-03-28] MEDS: Aspirin Enteric Coated 81 MG Tablet PO SCH ×2 (08:42→20:22)
[2022-03-28] MEDS: lisinopriL 5 MG TABLET PO SCH (08:43)
[2022-03-28] MEDS: Gabapentin 300 MG CAPSULE PO SCH ×3 (08:43→20:22)
[2022-03-28] MEDS: *HR* Amiodarone 200 MG TABLET PO SCH ×2 (08:43→20:22)
[2022-03-28] MEDS: Insulin LISPRO 300 UNITS/3 ML VIAL SUBQ SCH ×4 (08:44→21:09)
[2022-03-28] MEDS ORDERED: Alteplase (Cathflo) 10 MG in 0.9 % Sodium Chloride 50 ML IX SCH (14:00)
[2022-03-28] MEDS ORDERED: DORNASE ALFA IX SCH (14:00)
[2022-03-28] MEDS ORDERED: WATER FOR INJ IX SCH (14:00)
[2022-03-28] MEDS: Benzonatate 100 MG CAPSULE PO PRN (18:17)
[2022-03-28 23:35] LABS: BUN/Creatinine Ratio 28 (6-26); Blood Urea Nitrogen 23 mg/dL (6-20); Carbon Dioxide 32 mEq/L (23-29); Chloride 97 mEq/L (98-107); Glucose 130 mg/dL (70-105); Osmolality,Calculated 285 (280-300); Potassium 4.5 mEq/L (3.5-5.1); Sodium 135 mEq/L (136-145)
[2022-03-29 02:22] LABS: Hematocrit 29.3 % (37.5-50.1); Hemoglobin 8.9 g/dL (12.9-16.9); Mean Corpuscular HGB Conc 30.4 g/dL (31.6-35.5); Mean Corpuscular Hemoglobin 25.3 pg (28.0-33.3); Mean Corpuscular Volume 83.2 fL (83.0-100.0); Mean Platelet Volume 8.7 fL (9.4-12.4); Platelet Count 358 K/mcL (140-400); Red Blood Count 3.52 M/mcL (4.19-5.50); Red Cell Distribution Width 17.4 % (11.5-14.5); White Blood Count 11.8 K/mcL (4.3-11.1)
[2022-03-29 02:34] LABS: Calcium 8.2 mg/dL (8.6-10.3); Potassium 4.9 mEq/L (3.5-5.1)
[2022-03-29] MEDS: *HR* OxyCODONE/APAP 5/325 TABLET PO PRN ×3 (02:45→10:54)
[2022-03-29] MEDS: Benzonatate 100 MG CAPSULE PO PRN (02:46)
[2022-03-29] MEDS: Ipratropium/Albuterol Neb 3 ML IH SCH ×5 (03:52→20:26)
[2022-03-29] MEDS: *HR* Enoxaparin 40 MG/0.4 ML SYRINGE SQ SCH (06:56)
[2022-03-29] MEDS: Insulin LISPRO 300 UNITS/3 ML VIAL SUBQ SCH ×4 (07:46→20:41)
[2022-03-29] MEDS: Aspirin Enteric Coated 81 MG Tablet PO SCH ×2 (07:52→20:52)
[2022-03-29] MEDS: *HR* Amiodarone 200 MG TABLET PO SCH ×2 (07:52→20:52)
[2022-03-29] MEDS: Bumetanide 1 MG/4 ML VIAL IVP SCH ×2 (07:52→17:28)
[2022-03-29] MEDS: lisinopriL 5 MG TABLET PO SCH (07:52)
[2022-03-29] MEDS: Gabapentin 300 MG CAPSULE PO SCH ×3 (07:52→20:52)
[2022-03-29] MEDS: Nicotine 7 MG PATCH.TD24 TD SCH (07:53)
[2022-03-29] MEDS: polyethylene glycoL 3350 17 GM POWD.PACK PO SCH (07:53)
[2022-03-29] MEDS ORDERED: DORNASE ALFA IX SCH (10:45)
[2022-03-29] MEDS ORDERED: WATER FOR INJ IX SCH (10:45)
[2022-03-29] MEDS ORDERED: Alteplase (Cathflo) 10 MG in 0.9 % Sodium Chloride 50 ML IX SCH (10:45)
[2022-03-29] MEDS: *HR* OxyCODONE Immed Rel 5 MG TABLET PO PRN (14:53)
[2022-03-29] MEDS: GuaiFENesin/Codeine Oral Soln 5 ML UDC PO PRN (14:54)
[2022-03-30] MEDS: Ipratropium/Albuterol Neb 3 ML IH SCH ×6 (00:15→20:17)
[2022-03-30] MEDS: *HR* OxyCODONE Immed Rel 5 MG TABLET PO PRN ×5 (03:23→23:09)
[2022-03-30] MEDS: *HR* Enoxaparin 40 MG/0.4 ML SYRINGE SQ SCH (05:46)
[2022-03-30] MEDS: GuaiFENesin/Codeine Oral Soln 5 ML UDC PO PRN ×3 (05:46→21:26)
[2022-03-30] MEDS: Insulin LISPRO 300 UNITS/3 ML VIAL SUBQ SCH ×4 (07:38→21:11)
[2022-03-30] MEDS: Bumetanide 1 MG/4 ML VIAL IVP SCH ×2 (07:56→18:14)
[2022-03-30] MEDS: Aspirin Enteric Coated 81 MG Tablet PO SCH ×2 (07:57→21:12)
[2022-03-30] MEDS: polyethylene glycoL 3350 17 GM POWD.PACK PO SCH (07:57)
[2022-03-30] MEDS: Gabapentin 300 MG CAPSULE PO SCH ×3 (07:57→21:12)
[2022-03-30] MEDS: *HR* Amiodarone 200 MG TABLET PO SCH ×2 (07:58→21:11)
[2022-03-30] MEDS: Nicotine 7 MG PATCH.TD24 TD SCH (07:58)
[2022-03-30] MEDS: lisinopriL 5 MG TABLET PO SCH (08:04)
[2022-03-30 08:26] LABS: Hematocrit 28.9 % (37.5-50.1); Hemoglobin 8.7 g/dL (12.9-16.9); Mean Corpuscular HGB Conc 30.1 g/dL (31.6-35.5); Mean Corpuscular Hemoglobin 24.8 pg (28.0-33.3); Mean Corpuscular Volume 82.3 fL (83.0-100.0); Mean Platelet Volume 8.6 fL (9.4-12.4); Platelet Count 327 K/mcL (140-400); Red Blood Count 3.51 M/mcL (4.19-5.50); Red Cell Distribution Width 17.3 % (11.5-14.5); White Blood Count 11.2 K/mcL (4.3-11.1)
[2022-03-30 08:45] LABS: BUN/Creatinine Ratio 28 (6-26); Blood Urea Nitrogen 21 mg/dL (6-20); Calcium 8.5 mg/dL (8.6-10.3); Carbon Dioxide 33 mEq/L (23-29); Chloride 95 mEq/L (98-107); Glucose 92 mg/dL (70-105); Osmolality,Calculated 281 (280-300); Potassium 4.2 mEq/L (3.5-5.1); Sodium 134 mEq/L (136-145)
[2022-03-31] MEDS: Ipratropium/Albuterol Neb 3 ML IH SCH ×7 (00:03→23:35)
[2022-03-31] MEDS: GuaiFENesin/Codeine Oral Soln 5 ML UDC PO PRN ×3 (03:09→19:50)
[2022-03-31 06:15] LABS: Basophils % 0.4 %; Eosinophils # 0.8 K/mcL (0.0-0.6); Eosinophils % 9.1 %; Hematocrit 28.2 % (37.5-50.1); Hemoglobin 8.4 g/dL (12.9-16.9); Immature Granulocytes % 1.2 % (0-4); Lymphocytes # 1.5 K/mcL (0.6-4.6); Mean Corpuscular HGB Conc 29.8 g/dL (31.6-35.5); Mean Corpuscular Hemoglobin 24.6 pg (28.0-33.3); Mean Corpuscular Volume 82.7 fL (83.0-100.0); Mean Platelet Volume 8.7 fL (9.4-12.4); Monocytes % 11.6 %; Neutrophils # 5.4 K/mcL (1.6-8.9); Platelet Count 292 K/mcL (140-400); Red Blood Count 3.41 M/mcL (4.19-5.50); Red Cell Distribution Width 17.4 % (11.5-14.5); Segmented Neutrophils % 60.7 %; White Blood Count 8.9 K/mcL (4.3-11.1)
[2022-03-31] MEDS: *HR* Enoxaparin 40 MG/0.4 ML SYRINGE SQ SCH (06:44)
[2022-03-31 07:07] LABS: BUN/Creatinine Ratio 27 (6-26); Blood Urea Nitrogen 21 mg/dL (6-20); Calcium 8.5 mg/dL (8.6-10.3); Carbon Dioxide 35 mEq/L (23-29); Chloride 94 mEq/L (98-107); Glucose 127 mg/dL (70-105); Osmolality,Calculated 283 (280-300); Potassium 3.8 mEq/L (3.5-5.1); Sodium 134 mEq/L (136-145)
[2022-03-31] MEDS: Insulin LISPRO 300 UNITS/3 ML VIAL SUBQ SCH ×4 (08:04→19:51)
[2022-03-31] MEDS: Bumetanide 1 MG/4 ML VIAL IVP SCH (08:12)
[2022-03-31] MEDS: Nicotine 7 MG PATCH.TD24 TD SCH (08:12)
[2022-03-31] MEDS: Aspirin Enteric Coated 81 MG Tablet PO SCH ×2 (08:12→19:50)
[2022-03-31] MEDS: polyethylene glycoL 3350 17 GM POWD.PACK PO SCH (08:12)
[2022-03-31] MEDS: *HR* Amiodarone 200 MG TABLET PO SCH ×2 (08:13→19:50)
[2022-03-31] MEDS: Gabapentin 300 MG CAPSULE PO SCH ×3 (08:13→19:50)
[2022-03-31] MEDS: *HR* OxyCODONE Immed Rel 5 MG TABLET PO PRN ×3 (09:27→18:17)
[2022-03-31] MEDS: Bumetanide 1 MG TABLET PO SCH (16:09)
[2022-04-01] MEDS: *HR* OxyCODONE Immed Rel 5 MG TABLET PO PRN ×3 (02:35→20:43)
[2022-04-01] MEDS: Ipratropium/Albuterol Neb 3 ML IH SCH ×3 (04:06→11:34)
[2022-04-01] MEDS: *HR* Enoxaparin 40 MG/0.4 ML SYRINGE SQ SCH (06:05)
[2022-04-01] MEDS: Nicotine 7 MG PATCH.TD24 TD SCH (08:21)
[2022-04-01] MEDS: polyethylene glycoL 3350 17 GM POWD.PACK PO SCH (08:21)
[2022-04-01] MEDS: Aspirin Enteric Coated 81 MG Tablet PO SCH ×2 (08:22→20:43)
[2022-04-01] MEDS: *HR* Amiodarone 200 MG TABLET PO SCH ×2 (08:22→20:43)
[2022-04-01] MEDS: Bumetanide 1 MG TABLET PO SCH ×2 (08:22→17:09)
[2022-04-01] MEDS: Gabapentin 300 MG CAPSULE PO SCH ×3 (08:22→20:43)
[2022-04-01] MEDS: Insulin LISPRO 300 UNITS/3 ML VIAL SUBQ SCH ×4 (08:23→21:09)
[2022-04-01] MEDS ORDERED: Ipratropium/Albuterol Neb 3 ML IH PRN (13:58)
[2022-04-01] MEDS: GuaiFENesin/Codeine Oral Soln 5 ML UDC PO PRN ×2 (15:23→21:10)
[2022-04-02] MEDS: *HR* Enoxaparin 40 MG/0.4 ML SYRINGE SQ SCH (06:01)
[2022-04-02] MEDS: *HR* OxyCODONE Immed Rel 5 MG TABLET PO PRN ×3 (06:01→20:13)
[2022-04-02] MEDS: polyethylene glycoL 3350 17 GM POWD.PACK PO SCH (07:53)
[2022-04-02] MEDS: Bumetanide 1 MG TABLET PO SCH ×2 (07:53→15:29)
[2022-04-02] MEDS: Gabapentin 300 MG CAPSULE PO SCH ×3 (07:54→20:12)
[2022-04-02] MEDS: Nicotine 7 MG PATCH.TD24 TD SCH (07:54)
[2022-04-02] MEDS: Aspirin Enteric Coated 81 MG Tablet PO SCH ×2 (07:54→20:13)
[2022-04-02] MEDS: *HR* Amiodarone 200 MG TABLET PO SCH ×2 (07:54→20:13)
[2022-04-02] MEDS: Insulin LISPRO 300 UNITS/3 ML VIAL SUBQ SCH ×4 (07:55→20:14)
[2022-04-02] MEDS: GuaiFENesin/Codeine Oral Soln 5 ML UDC PO PRN (17:40)
[2022-04-03 03:36] LABS: Hemoglobin 8.5 g/dL (12.9-16.9); Mean Corpuscular HGB Conc 29.3 g/dL (31.6-35.5); Mean Corpuscular Hemoglobin 24.3 pg (28.0-33.3); Mean Corpuscular Volume 82.9 fL (83.0-100.0); Mean Platelet Volume 8.8 fL (9.4-12.4); Platelet Count 319 K/mcL (140-400); Red Cell Distribution Width 17.4 % (11.5-14.5); White Blood Count 9.9 K/mcL (4.3-11.1)
[2022-04-03] MEDS: *HR* Enoxaparin 40 MG/0.4 ML SYRINGE SQ SCH (04:32)
[2022-04-03] MEDS: *HR* OxyCODONE Immed Rel 5 MG TABLET PO PRN ×3 (04:32→21:03)
[2022-04-03] MEDS: GuaiFENesin/Codeine Oral Soln 5 ML UDC PO PRN (04:32)
[2022-04-03] MEDS: Gabapentin 300 MG CAPSULE PO SCH ×3 (10:29→21:04)
[2022-04-03] MEDS: Aspirin Enteric Coated 81 MG Tablet PO SCH ×2 (10:29→21:04)
[2022-04-03] MEDS: Nicotine 7 MG PATCH.TD24 TD SCH ×2 (10:30→10:34)
[2022-04-03] MEDS: polyethylene glycoL 3350 17 GM POWD.PACK PO SCH (10:32)
[2022-04-03] MEDS: *HR* Amiodarone 200 MG TABLET PO SCH ×2 (10:32→21:04)
[2022-04-03] MEDS: Insulin LISPRO 300 UNITS/3 ML VIAL SUBQ SCH ×4 (10:33→16:59)
[2022-04-03] MEDS: Bumetanide 1 MG TABLET PO SCH ×2 (10:42→16:58)
[2022-04-04] MEDS: *HR* OxyCODONE Immed Rel 5 MG TABLET PO PRN ×4 (01:01→20:54)
[2022-04-04] MEDS: GuaiFENesin/Codeine Oral Soln 5 ML UDC PO PRN ×2 (03:47→12:25)
[2022-04-04] MEDS: *HR* Enoxaparin 40 MG/0.4 ML SYRINGE SQ SCH (05:29)
[2022-04-04] MEDS: Gabapentin 300 MG CAPSULE PO SCH ×3 (08:50→20:54)
[2022-04-04] MEDS: Aspirin Enteric Coated 81 MG Tablet PO SCH ×2 (08:50→20:54)
[2022-04-04] MEDS: *HR* Amiodarone 200 MG TABLET PO SCH ×2 (08:51→20:53)
[2022-04-04] MEDS: Bumetanide 1 MG TABLET PO SCH ×2 (08:51→18:15)
[2022-04-04] MEDS: polyethylene glycoL 3350 17 GM POWD.PACK PO SCH (08:51)
[2022-04-04] MEDS: Insulin LISPRO 300 UNITS/3 ML VIAL SUBQ SCH ×4 (08:52→20:56)
[2022-04-04] MEDS: Nicotine 7 MG PATCH.TD24 TD SCH (08:53)
[2022-04-04 15:15] LABS: BUN/Creatinine Ratio 22 (6-26); Blood Urea Nitrogen 18 mg/dL (6-20); Calcium 8.4 mg/dL (8.6-10.3); Carbon Dioxide 35 mEq/L (23-29); Chloride 93 mEq/L (98-107); Glucose 126 mg/dL (70-105); Osmolality,Calculated 283 (280-300); Potassium 3.8 mEq/L (3.5-5.1); Sodium 135 mEq/L (136-145)
[2022-04-04] MEDS: Benzonatate 100 MG CAPSULE PO PRN ×2 (15:34→20:54)
[2022-04-05] MEDS: *HR* Enoxaparin 40 MG/0.4 ML SYRINGE SQ SCH (05:03)
[2022-04-05] MEDS: Gabapentin 300 MG CAPSULE PO SCH ×3 (08:10→22:24)
[2022-04-05] MEDS: Aspirin Enteric Coated 81 MG Tablet PO SCH ×2 (08:10→20:53)
[2022-04-05] MEDS: *HR* Amiodarone 200 MG TABLET PO SCH (08:10)
[2022-04-05] MEDS: Bumetanide 1 MG TABLET PO SCH ×2 (08:10→17:49)
[2022-04-05] MEDS: polyethylene glycoL 3350 17 GM POWD.PACK PO SCH (08:11)
[2022-04-05] MEDS: Insulin LISPRO 300 UNITS/3 ML VIAL SUBQ SCH ×4 (08:12→20:54)
[2022-04-05] MEDS: *HR* OxyCODONE Immed Rel 5 MG TABLET PO PRN ×2 (12:14→20:53)
[2022-04-06] MEDS: *HR* Enoxaparin 40 MG/0.4 ML SYRINGE SQ SCH (05:41)
[2022-04-06] MEDS: Insulin LISPRO 300 UNITS/3 ML VIAL SUBQ SCH ×4 (07:56→21:35)
[2022-04-06] MEDS: Gabapentin 300 MG CAPSULE PO SCH ×3 (08:28→21:31)
[2022-04-06] MEDS: Bumetanide 1 MG TABLET PO SCH ×2 (08:28→17:12)
[2022-04-06] MEDS: Aspirin Enteric Coated 81 MG Tablet PO SCH ×2 (08:28→21:31)
[2022-04-06] MEDS: *HR* OxyCODONE Immed Rel 5 MG TABLET PO PRN ×2 (08:29→13:22)
[2022-04-06] MEDS: Nicotine 7 MG PATCH.TD24 TD SCH (08:29)
[2022-04-06] MEDS: *HR* Amiodarone 200 MG TABLET PO SCH (08:29)
[2022-04-06] MEDS: polyethylene glycoL 3350 17 GM POWD.PACK PO SCH (08:30)
[2022-04-06 14:34] LABS: Adenovirus Not Detected (Not Detect); Bordetella Pertussis Not Detected (Not Detect); Chlamydophila pneumoniae Not Detected (Not Detect); Coronavirus 229E Not Detected (Not Detect); Coronavirus HKU1 Not Detected (Not Detect); Coronavirus NL63 Not Detected (Not Detect); Coronavirus OC43 Not Detected (Not Detect); Influenza A Subtype 2009 H1 Not Detected (Not Detect); Influenza B Not Detected (Not Detect); Mycoplasma pneumoniae Not Detected (Not Detect); Parainfluenza Virus 1 Not Detected (Not Detect); Parainfluenza Virus 2 Not Detected (Not Detect); Parainfluenza Virus 3 Not Detected (Not Detect); Parainfluenza Virus 4 Not Detected (Not Detect); Respiratory Syncytial Virus Not Detected (Not Detect); SARS-CoV-2 Not Detected (Not Detect)
[2022-04-06] MEDS: Benzonatate 100 MG CAPSULE PO PRN (17:12)
[2022-04-07] MEDS: *HR* Enoxaparin 40 MG/0.4 ML SYRINGE SQ SCH (05:28)
[2022-04-07 05:34] VITALS: PULSE 80; O2SAT 100
[2022-04-07 07:44] VITALS: TEMP 98.7
[2022-04-07] MEDS: Insulin LISPRO 300 UNITS/3 ML VIAL SUBQ SCH ×2 (08:10→12:27)
[2022-04-07] MEDS: *HR* OxyCODONE Immed Rel 5 MG TABLET PO PRN (09:52)
[2022-04-07] MEDS: *HR* Amiodarone 200 MG TABLET PO SCH (09:54)
[2022-04-07] MEDS: Aspirin Enteric Coated 81 MG Tablet PO SCH (09:54)
[2022-04-07] MEDS: Gabapentin 300 MG CAPSULE PO SCH (09:54)
[2022-04-07] MEDS: Nicotine 7 MG PATCH.TD24 TD SCH (09:54)
[2022-04-07] MEDS: polyethylene glycoL 3350 17 GM POWD.PACK PO SCH (09:55)
[2022-04-07 09:59] VITALS: BP 131/85
[2022-04-07] MEDS: Bumetanide 1 MG TABLET PO SCH (10:07)
[2022-04-07 11:02] LABS: Basophils % 0.2 %; Eosinophils # 0.5 K/mcL (0.0-0.6); Eosinophils % 6.3 %; Hematocrit 28.5 % (37.5-50.1); Hemoglobin 8.6 g/dL (12.9-16.9); Immature Granulocytes % 0.6 % (0-4); Lymphocytes # 0.9 K/mcL (0.6-4.6); Lymphocytes % 10.6 %; Mean Corpuscular HGB Conc 30.2 g/dL (31.6-35.5); Mean Corpuscular Hemoglobin 24.5 pg (28.0-33.3); Mean Corpuscular Volume 81.2 fL (83.0-100.0); Mean Platelet Volume 8.8 fL (9.4-12.4); Monocytes # 0.7 K/mcL (0.0-1.3); Monocytes % 8.5 %; Neutrophils # 6.4 K/mcL (1.6-8.9); Platelet Count 275 K/mcL (140-400); Red Blood Count 3.51 M/mcL (4.19-5.50); Red Cell Distribution Width 17.7 % (11.5-14.5); Segmented Neutrophils % 73.8 %; White Blood Count 8.6 K/mcL (4.3-11.1)
[2022-04-08 13:27] LABS: Human Metapneumovirus DETECTED (Not Detect)
[2022-04-08 13:28] LABS: Human Rhinovirus/Enterovirus Not Detected (Not Detect)
== END 2022-04-07 13:19 | disposition other institution (70) | DRG 219 ==
LOC: SAMDAY 06:03 → ICNU 13:14 → SUATTDRO 03-10 09:52 → 2NNU 03-12 03:20 → ICNU 03-17 09:53 → 2NNU 03-27 16:32 → 2NENU 04-02 14:52
PROVIDERS: ADMIT Thoracic Surgery (Cardiothoracic Vascular Surgery); ATTEND Registered Nurse